=== PATIENT | male | born 1950 | race Two or more races ===

== ENCOUNTER → 2020-02-16 10:51 | Outpatient (BNVA) | payer MEDICARE, SELFPAY | PROVIDERS: PCP Family Medicine; Visit Provider Internal Medicine | DX: J44.9 Chronic obstructive pulmonary disease, unspecified (principal); J45.909 Unspecified asthma, uncomplicated; J68.3 Other acute and subacute respiratory conditions due to chemicals, gases, fumes and vapors; I10 Essential (primary) hypertension | CPT/HCPCS: 99212 ==

== ENCOUNTER 2020-05-07 10:25 | Outpatient (REF) | payer MEDICARE, SELFPAY ==
[2020-05-07 12:27] LABS: Estimated Average Glucose 117 mg/dL; Hemoglobin A1C 163.2587 umol/L; Hemoglobin A1c % 5.7 %
[2020-05-07 12:35] LABS: Anion Gap 17 (12-20); Blood Urea Nitrogen 14 mg/dL (9-16); Carbon Dioxide 27 mmol/L (22-29); Chloride 105 mmol/L (96-108); Cholesterol 166 mg/dL; Estimated Glomerular Filt Rate > 60; Glucose Fasting 106 mg/dL (60-99); HDL Cholesterol 35 mg/dL; LDL Cholesterol Calculated 100 mg/dl; Potassium 3.8 mmol/l (3.3-5.1); Sodium 145 mmol/L (135-145); Triglycerides 159 mg/dL
== END 2020-05-07 10:26 | disposition home or self-care (01) ==
LOC: HO.10HDL 10:25
PROVIDERS: Visit Provider Family Medicine
DX: I10 Essential (primary) hypertension (principal); E78.00 Pure hypercholesterolemia, unspecified; R73.9 Hyperglycemia, unspecified
CPT/HCPCS: 36415; 80051; 80061; 82565; 82947; 83036; 84520

== ENCOUNTER → 2020-06-14 13:07 | Outpatient (BNVA) | payer MEDICARE, SELFPAY | PROVIDERS: PCP Family Medicine; Visit Provider Internal Medicine | DX: J44.9 Chronic obstructive pulmonary disease, unspecified (principal); J30.9 Allergic rhinitis, unspecified; J68.3 Other acute and subacute respiratory conditions due to chemicals, gases, fumes and vapors; Z79.51 Long term (current) use of inhaled steroids | CPT/HCPCS: 99212 ==

== ENCOUNTER 2020-06-19 08:23 | Outpatient (REF) | payer MEDICARE, SELFPAY ==
[2020-06-19 10:13] LABS: MANUAL DIFF FLAG NO
[2020-06-19 10:17] LABS: Basophils Percent Auto 0.4 % (0-2); Eosinophils Absolute Auto 0.1 X10*3/uL (0.0-0.4); Eosinophils Percent Auto 2.6 % (0-4); Hematocrit 47.8 % (42-52); Hemoglobin 15.5 g/dl (14.0-18.0); Imm Gran Abs Auto 0.02 X10*3/uL (0.00-0.03); Imm Gran Pct Auto 0.4 % (0.0-0.4); Lymphocytes Absolute Auto 1.4 X10*3/uL (1.2-4.9); Lymphocytes Percent Auto 27.9 % (20-40); Mean Corpuscular HGB Conc 32.4 g/dl (31.0-36.0); Mean Corpuscular Hemoglobin 29.2 pg (27.0-33.0); Mean Platelet Volume 9.7 fL (9.4-12.4); Monocytes Absolute Auto 0.4 X10*3/uL (0.1-1.2); Monocytes Percent Auto 7.5 % (2-11); Neutrophils Absolute Auto 3.1 X10*3/uL (2.0-8.3); Neutrophils Percent Auto 61.2 % (45-73); Platelet Count 197 X10*3/uL (160-400); Red Blood Count 5.31 X10*6/uL (4.60-5.80); Red Cell Distribution Width 12.5 % (11.0-16.0); White Blood Count 5.1 X10*3/uL (4.8-10.8)
[2020-06-19 10:39] LABS: Glucose Urine UA NEG (NEG); Leukocyte Esterase Urine NEG (NEG); Nitrite Urine NEG (NEG); Urine Blood TRACE (NEG); Urine Ketones NEG (NEG); Urine Protein NEG (NEG-TRACE)
[2020-06-19 10:44] LABS: Alanine Aminotransferase 20 U/L (0-40); Albumin Level 4.4 g/dL (3.5-5.0); Alkaline Phosphatase 45 U/L (39-117); Appearance Urine CLEAR; Aspartate Amino Transferase 16 U/L (5-37); Bilirubin Direct 0.3 mg/dL (0.0-0.5); Bilirubin Total 0.8 mg/dL (0.0-1.0); Color Urine YELLOW; Magnesium 2.4 mg/dL (1.6-2.6); Total Protein 6.7 g/dL (6.5-8.0)
[2020-06-19 11:05] LABS: Erythrocyte Sedimentation Rate 2 MM/HR (0-15); Free T4 (Free Thyroxine) 0.87 ng/dL (0.71-1.85); Thyroid Stimulating Hormone 1.47 uIU/mL (0.32-4.0)
[2020-06-19 11:40] LABS: RBC Urine 0-2 /HPF (0); WBC Urine 0 /HPF (0-4)
[2020-06-19 11:41] LABS: Amorphous Sediment Urine 1+ /LPF; Mucus Urine 1+ /LPF
== END 2020-06-19 08:24 | disposition home or self-care (01) ==
LOC: HO.10HDL 08:23
PROVIDERS: Visit Provider Family Medicine
DX: R63.4 Abnormal weight loss (principal); R00.0 Tachycardia, unspecified; R53.1 Weakness
CPT/HCPCS: 36415; 80076; 81001; 83735; 84439; 84443; 85025; 85652

== ENCOUNTER → 2020-09-24 13:01 | Outpatient (BNVA) | payer MEDICARE, SELFPAY | PROVIDERS: PCP Family Medicine; Visit Provider Internal Medicine | DX: J44.9 Chronic obstructive pulmonary disease, unspecified (principal); J68.3 Other acute and subacute respiratory conditions due to chemicals, gases, fumes and vapors; J30.9 Allergic rhinitis, unspecified; Z79.899 Other long term (current) drug therapy | CPT/HCPCS: 99212 ==

== ENCOUNTER 2020-10-03 09:25 | Outpatient (REF) | payer MEDICARE, SELFPAY ==
[2020-10-03 10:12] LABS: MANUAL DIFF FLAG NO
[2020-10-03 10:23] LABS: Basophils Percent Auto 0.8 % (0-2); Eosinophils Absolute Auto 0.2 X10*3/uL (0.0-0.4); Eosinophils Percent Auto 3.8 % (0-4); Hemoglobin 15.6 g/dl (14.0-18.0); Imm Gran Abs Auto 0.03 X10*3/uL (0.00-0.03); Imm Gran Pct Auto 0.6 % (0.0-0.4); Lymphocytes Absolute Auto 1.1 X10*3/uL (1.2-4.9); Lymphocytes Percent Auto 20.6 % (20-40); Mean Corpuscular HGB Conc 33.2 g/dl (31.0-36.0); Mean Corpuscular Hemoglobin 29.6 pg (27.0-33.0); Mean Corpuscular Volume 89.2 fL (80-98); Mean Platelet Volume 9.2 fL (9.4-12.4); Monocytes Absolute Auto 0.4 X10*3/uL (0.1-1.2); Monocytes Percent Auto 7.9 % (2-11); Neutrophils Absolute Auto 3.5 X10*3/uL (2.0-8.3); Neutrophils Percent Auto 66.3 % (45-73); Platelet Count 238 X10*3/uL (160-400); Red Blood Count 5.27 X10*6/uL (4.60-5.80); Red Cell Distribution Width 12.5 % (11.0-16.0); White Blood Count 5.2 X10*3/uL (4.8-10.8)
[2020-10-03 10:51] LABS: Anion Gap 15 (12-20); Aspartate Amino Transferase 16 U/L (5-37); Blood Urea Nitrogen 10 mg/dL (9-16); Carbon Dioxide 25 mmol/L (22-29); Chloride 102 mmol/L (96-108); Estimated Glomerular Filt Rate > 60; Potassium 4.2 mmol/L (3.3-5.1); Sodium 138 mmol/L (135-145)
== END 2020-10-03 09:26 | disposition home or self-care (01) ==
LOC: HO.10HDL 09:25
PROVIDERS: Visit Provider Family Medicine
DX: R19.7 Diarrhea, unspecified (principal); R63.4 Abnormal weight loss
CPT/HCPCS: 36415; 80051; 82565; 84450; 84520; 85025

== ENCOUNTER → 2020-12-26 13:04 | Outpatient (BNVA) | payer MEDICARE, SELFPAY | PROVIDERS: PCP Family Medicine; Visit Provider Internal Medicine | DX: J68.3 Other acute and subacute respiratory conditions due to chemicals, gases, fumes and vapors (principal); J30.9 Allergic rhinitis, unspecified; J44.9 Chronic obstructive pulmonary disease, unspecified; F43.23 Adjustment disorder with mixed anxiety and depressed mood | CPT/HCPCS: 99212 ==

== ENCOUNTER 2021-01-18 10:31 | Outpatient (REF) | payer MEDICARE, SELFPAY ==
[2021-01-18 14:02] LABS: Anion Gap 14 (12-20); Blood Urea Nitrogen 16 mg/dL (9-16); Carbon Dioxide 30 mmol/L (22-29); Chloride 100 mmol/L (96-108); Estimated Glomerular Filt Rate > 60; Potassium 3.9 mmol/L (3.3-5.1); Sodium 140 mmol/L (135-145)
== END 2021-01-18 10:32 | disposition home or self-care (01) ==
LOC: HO.10HDL 10:31
PROVIDERS: Visit Provider Family Medicine
DX: I10 Essential (primary) hypertension (principal)
CPT/HCPCS: 36415; 80051; 82565; 84520

== ENCOUNTER 2021-01-30 14:11 | Outpatient (REF) | payer MEDICARE, SELFPAY ==
--- NOTE | ~2021-01-30 | MM_ITS ---
EXAMINATION: MM DIAGNOSTIC DIGITAL BREAST TOMOSYNTHESIS, BILATERAL US DIAGNOSTIC ULTRASOUND BREAST, LEFT CLINICAL INFORMATION: 70-year-old male with palpable masslike fullness left breast. Prior history asymmetric contralateral right gynecomastia. COMPARISON: Mammography: 07/18/2010 TECHNIQUE: Digital breast tomosynthesis is performed in both the craniocaudal and mediolateral oblique views along with computer-aided detection (CAD). Synthesized 2D images are generated from the tomosynthesis. Additional views are obtained: Right CC, spot exaggerated left CC. Ultrasound left breast is targeted to the 12:00 through 8:00 position using grayscale imaging and color Doppler without and with harmonics. FINDINGS: The breasts are heterogeneously dense, which may obscure small masses (ACR BI-RADS breast composition Category c). There is asymmetric gynecomastia, mild on right and moderate to prominent on left. There is no underlying mass or architectural abnormality. No abnormal calcifications. Axillary nodes are unremarkable. No skin thickening. Comparison with prior mammography 07/18/2010 shows reversed distribution of the asymmetric gynecomastia, at that time greater on right central and outer breast and lesser on left. Ultrasound left breast demonstrates gynecomastia type parenchymal pattern. No focal cystic or solid mass or focal duct ectasia. No edema tracking in soft tissue planes or skin thickening. Results are discussed with the patient at time of visit, using an gis application developer. MM/MM tomosynthesis diagnostic BI IMPRESSION: Asymmetric gynecomastia, moderate to prominent on left. This represents reversed distribution to that seen on prior remote mammography 2010. ASSESSMENT: BI-RADS 2: Benign RECOMMENDATION: Patient may be managed based on the clinical impression as needed. If there is still clinical concern, then further evaluation with surgical consult may be considered.
== END 2021-01-30 14:12 | disposition home or self-care (01) ==
LOC: HO.MAMMO 14:11
PROVIDERS: Visit Provider Family Medicine
DX: C50.322 Malignant neoplasm of lower-inner quadrant of left male breast (principal)
CPT/HCPCS: 76642; 77062; 77066

== ENCOUNTER 2021-03-11 11:04 | Outpatient (REF) | payer MEDICARE, SELFPAY ==
[2021-03-11 11:18] LABS: MANUAL DIFF FLAG NO
[2021-03-11 11:59] LABS: Basophils Percent Auto 0.3 % (0-2); Eosinophils Absolute Auto 0.2 X10*3/uL (0.0-0.4); Eosinophils Percent Auto 2.4 % (0-4); Imm Gran Abs Auto 0.03 X10*3/uL (0.00-0.03); Imm Gran Pct Auto 0.5 % (0.0-0.4); Lymphocytes Absolute Auto 0.6 X10*3/uL (1.2-4.9); Lymphocytes Percent Auto 10.3 % (20-40); Mean Corpuscular HGB Conc 32.6 g/dl (31.0-36.0); Mean Corpuscular Hemoglobin 29.4 pg (27.0-33.0); Mean Corpuscular Volume 90.2 fL (80.0-98.0); Mean Platelet Volume 9.8 fL (9.4-12.4); Monocytes Absolute Auto 0.4 X10*3/uL (0.1-1.2); Monocytes Percent Auto 6.9 % (2-11); Neutrophils Absolute Auto 4.9 x10*3/uL (2.0-8.3); Neutrophils Percent Auto 79.6 % (45-73); Platelet Count 199 X10*3/uL (160-400); Red Cell Distribution Width 12.9 % (11.0-16.0); White Blood Count 6.1 X10*3/uL (4.8-10.8)
[2021-03-11 12:29] LABS: Prostate Specific Antigen Scr 0.99 ng/mL (<0.05-4.0)
[2021-03-11 12:37] LABS: Alanine Aminotransferase 26 U/L (0-40); Albumin Level 4.4 g/dL (3.5-5.0); Alkaline Phosphatase 54 U/L (39-117); Anion Gap 14 (12-20); Aspartate Amino Transferase 21 U/L (5-37); Bilirubin Total 0.6 mg/dL (0.0-1.0); Blood Urea Nitrogen 14 mg/dL (9-16); Calcium 9.4 mg/dL (8.4-10.2); Carbon Dioxide 26 mmol/L (22-29); Chloride 105 mmol/L (96-108); Cholesterol 178 mg/dL; Estimated Glomerular Filt Rate > 60; Glucose Fasting 112 mg/dL (60-99); HDL Cholesterol 40 mg/dL; LDL Cholesterol Calculated 109 mg/dl; Potassium 4.3 mmol/L (3.3-5.1); Sodium 141 mmol/L (135-145); Total Protein 6.9 g/dL (6.5-8.0); Triglycerides 148 mg/dL
[2021-03-11 12:56] LABS: Estimated Average Glucose 117 mg/dL; Hemoglobin A1c % 5.7 %
[2021-03-11 13:39] LABS: Folate 19.5 ng/mL (> or = 4.0); Vitamin B12 1373 pg/mL (200-900)
[2021-03-15 13:31] LABS: Vitamin D 25-OH, D2 <4 ng/mL; Vitamin D 25-OH, D3 29 ng/mL; Vitamin D 25-OH, Total 29 ng/mL (30-100)
== END 2021-03-11 11:05 | disposition home or self-care (01) ==
LOC: HO.LAB 11:04
PROVIDERS: Visit Provider Nurse Practitioner Acute Care
DX: Z13.220 Encounter for screening for lipoid disorders (principal); Z13.21 Encounter for screening for nutritional disorder; Z12.5 Encounter for screening for malignant neoplasm of prostate; E56.9 Vitamin deficiency, unspecified; R52 Pain, unspecified
CPT/HCPCS: 36415; 80053; 80061; 82306; 82607; 82746; 83036; 84153; 85025

== ENCOUNTER 2021-04-16 12:37 | Outpatient (REF) | payer MEDICARE, SELFPAY ==
--- NOTE | ~2021-04-16 | MM_ITS ---
EXAMINATION: BONE DENSITOMETRY CLINICAL INDICATION: Encounter for screening for osteoporosis. COMPARISON: This is the patient's baseline examination. TECHNIQUE: Using a [employer] DXA System (software version: 13.1) manufactured by [employer], dual-energy x-ray absorptiometry was performed of the lumbar spine and left hip. The images are of good technical quality. Summary results are attached. FINDINGS: AP SPINE L1-L4: BMD 0.993 g/cm2, Z-score -1.2, T-score -1.9, osteopenia. LEFT FEMUR, NECK: BMD 0.849 g/cm2, Z-score -0.3, T-score -1.7, osteopenia. LEFT FEMUR, TOTAL: BMD 0.899 g/cm2, Z-score -0.5, T-score -1.4, osteopenia. IDENTIFIED RISK FACTORS: History of fracture (adult). HISTORY OF FRACTURE: Forearm. MEDICATIONS: Calcium supplements or multivitamin, vitamin D. MM/XR DEXA axial skeleton IMPRESSION: 1. DIAGNOSIS: Osteopenia based on the lowest T-score value of -1.9 in the lumbar spine applying World Health Organization criteria. 2. 10-YEAR FRACTURE RISK PREDICTION, FRAX: Major osteoporotic fracture (clinical spine, forearm, hip or shoulder) 6.6%. Hip fracture 1.6%. 3. Treatment Recommendations: NOF guidelines recommend consideration for treatment in postmenopausal women and men age 50 and older presenting with the following: -A hip or vertebral (clinical or morphometric) fracture. -T-score less than or equal to -2.5 at the femoral neck or spine after appropriate evaluation to exclude secondary causes. -Low bone mass at the hip or spine and a 10-year fracture probability by FRAX of greater than or equal to 3% for hip fracture or greater than or equal to 20% for major osteoporotic fracture based on the [place] adapted WHO algorithm. 4. Other Recommendations: All treatment decisions require clinical judgment and consideration of individual patient factors, including patient preferences, comorbidities, previous drug use, risk factors not captured in the FRAX model (e.g. frailty, falls, vitamin D deficiency, increased bone turnover, interval significant decline in bone density) and possible under or overestimation of fracture risk by FRAX. Additional medical evaluation for secondary cause of low bone mineral density may be appropriate. FUTURE SCAN RECOMMENDATION: People with diagnosed cases of osteoporosis or at high risk for fracture should have regular bone mineral density tests. For patients eligible for Medicare, routine testing is allowed once every 2 years. The testing frequency can be increased to one year for patients who have rapidly progressing disease, those who are receiving or discontinuing medical therapy to restore bone mass, or have additional risk factors.
== END 2021-04-16 12:38 | disposition home or self-care (01) ==
LOC: HO.MAMMO 12:37
PROVIDERS: Visit Provider Nurse Practitioner Acute Care
DX: Z13.820 Encounter for screening for osteoporosis (principal); M85.80 Other specified disorders of bone density and structure, unspecified site; Z79.899 Other long term (current) drug therapy
CPT/HCPCS: 77080

== ENCOUNTER → 2021-04-17 12:59 | Outpatient (BNVA) | payer MEDICARE, SELFPAY | PROVIDERS: PCP Nurse Practitioner Acute Care; Visit Provider Internal Medicine | DX: J43.2 Centrilobular emphysema (principal); J30.9 Allergic rhinitis, unspecified; J68.3 Other acute and subacute respiratory conditions due to chemicals, gases, fumes and vapors | CPT/HCPCS: 99212 ==

== ENCOUNTER 2021-07-17 09:18 | Outpatient (REF) | payer OTHER, SELFPAY ==
[2021-07-17 09:51] LABS: MANUAL DIFF FLAG NO
[2021-07-17 10:19] LABS: Basophils Absolute Auto 0.1 X10*3/uL (0.0-0.2); Basophils Percent Auto 0.9 % (0-2); Eosinophils Absolute Auto 0.2 X10*3/uL (0.0-0.4); Eosinophils Percent Auto 4.2 % (0-4); Hematocrit 49.2 % (42.0-52.0); Hemoglobin 16.2 g/dl (14.0-18.0); Imm Gran Abs Auto 0.03 X10*3/uL (0.00-0.03); Imm Gran Pct Auto 0.5 % (0.0-0.4); Lymphocytes Absolute Auto 1.2 X10*3/uL (1.2-4.9); Lymphocytes Percent Auto 20.8 % (20-40); Mean Corpuscular HGB Conc 32.9 g/dl (31.0-36.0); Mean Corpuscular Hemoglobin 29.2 pg (27.0-33.0); Mean Corpuscular Volume 88.8 fL (80.0-98.0); Mean Platelet Volume 9.4 fL (9.4-12.4); Monocytes Absolute Auto 0.5 X10*3/uL (0.1-1.2); Monocytes Percent Auto 8.9 % (2-11); Neutrophils Absolute Auto 3.7 x10*3/uL (2.0-8.3); Neutrophils Percent Auto 64.7 % (45-73); Platelet Count 232 X10*3/uL (160-400); Red Blood Count 5.54 X10*6/uL (4.60-5.80); Red Cell Distribution Width 12.3 % (11.0-16.0); White Blood Count 5.7 X10*3/uL (4.8-10.8)
[2021-07-17 11:07] LABS: Anion Gap 12 (12-20); Blood Urea Nitrogen 12 mg/dL (9-16); Calcium 9.7 mg/dL (8.4-10.2); Carbon Dioxide 30 mmol/L (22-29); Chloride 103 mmol/L (96-108); Cholesterol 186 mg/dL; Estimated Glomerular Filt Rate > 60; Glucose Fasting 116 mg/dL (60-99); HDL Cholesterol 38 mg/dL; LDL Cholesterol Calculated 122 mg/dl; Potassium 4.4 mmol/L (3.3-5.1); Sodium 141 mmol/L (135-145); Triglycerides 134 mg/dL
== END 2021-07-17 09:19 | disposition home or self-care (01) ==
LOC: HO.LAB 09:18
PROVIDERS: PCP Nurse Practitioner Acute Care; Visit Provider Nurse Practitioner Acute Care
DX: J44.9 Chronic obstructive pulmonary disease, unspecified (principal); E78.5 Hyperlipidemia, unspecified
CPT/HCPCS: 36415; 80048; 80061; 85025

== ENCOUNTER → 2021-08-21 13:36 | Outpatient (BNVA) | payer OTHER, SELFPAY | PROVIDERS: PCP Nurse Practitioner Acute Care; Visit Provider Internal Medicine | DX: J43.2 Centrilobular emphysema (principal); J68.3 Other acute and subacute respiratory conditions due to chemicals, gases, fumes and vapors; J30.9 Allergic rhinitis, unspecified; F43.23 Adjustment disorder with mixed anxiety and depressed mood | CPT/HCPCS: 94010; 99212 ==

== ENCOUNTER → 2021-10-16 12:53 | Outpatient (BNVA) | payer OTHER, SELFPAY | PROVIDERS: PCP Nurse Practitioner Family; Visit Provider Internal Medicine | DX: J43.2 Centrilobular emphysema (principal); J30.9 Allergic rhinitis, unspecified; J68.3 Other acute and subacute respiratory conditions due to chemicals, gases, fumes and vapors; F43.23 Adjustment disorder with mixed anxiety and depressed mood; Z79.52 Long term (current) use of systemic steroids; Z79.899 Other long term (current) drug therapy | CPT/HCPCS: 99212 ==

== ENCOUNTER 2021-10-21 07:36 | Outpatient (REF) | payer OTHER, SELFPAY ==
[2021-10-21 08:55] LABS: Alanine Aminotransferase 19 U/L (0-40); Albumin Level 4.5 g/dL (3.5-5.0); Alkaline Phosphatase 56 U/L (39-117); Anion Gap 12 (12-20); Aspartate Amino Transferase 17 U/L (5-37); Bilirubin Total 0.5 mg/dL (0.0-1.0); Blood Urea Nitrogen 13 mg/dL (9-16); Calcium 9.5 mg/dL (8.4-10.2); Carbon Dioxide 31 mmol/L (22-29); Chloride 101 mmol/L (96-108); Cholesterol 163 mg/dL; Estimated Glomerular Filt Rate > 60; Glucose Random 104 mg/dL (60-115); HDL Cholesterol 37 mg/dL; LDL Cholesterol Calculated 91 mg/dl; Potassium 4.2 mmol/L (3.3-5.1); Sodium 140 mmol/L (135-145); Total Protein 6.9 g/dL (6.5-8.0); Triglycerides 178 mg/dL
[2021-10-21 09:05] LABS: Estimated Average Glucose 117 mg/dL; Hemoglobin A1c % 5.7 %
[2021-10-21 09:15] LABS: TSH reflex Free T4 1.45 uIU/mL (0.32-4.0); Vitamin D 25-OH Total 24.5 ng/mL (>30)
== END 2021-10-21 07:37 | disposition home or self-care (01) ==
LOC: HO.LAB 07:36
PROVIDERS: PCP Nurse Practitioner Family; Visit Provider Nurse Practitioner Family
DX: Z13.29 Encounter for screening for other suspected endocrine disorder (principal); R73.01 Impaired fasting glucose; E78.5 Hyperlipidemia, unspecified; I10 Essential (primary) hypertension
CPT/HCPCS: 36415; 80053; 80061; 82306; 83036; 84443

== ENCOUNTER 2021-11-04 08:07 | Outpatient (REF) | payer OTHER, SELFPAY ==
[2021-11-04 08:21] LABS: MANUAL DIFF FLAG NO
[2021-11-04 08:28] LABS: Basophils Percent Auto 0.7 % (0-2); Eosinophils Absolute Auto 0.2 X10*3/uL (0.0-0.4); Eosinophils Percent Auto 2.5 % (0-4); Hematocrit 47.8 % (42.0-52.0); Hemoglobin 15.7 g/dl (14.0-18.0); Imm Gran Abs Auto 0.03 X10*3/uL (0.00-0.03); Imm Gran Pct Auto 0.5 % (0.0-0.4); Lymphocytes Absolute Auto 1.4 X10*3/uL (1.2-4.9); Lymphocytes Percent Auto 23.9 % (20-40); Mean Corpuscular HGB Conc 32.8 g/dl (31.0-36.0); Mean Corpuscular Hemoglobin 29.2 pg (27.0-33.0); Mean Corpuscular Volume 88.8 fL (80.0-98.0); Mean Platelet Volume 9.1 fL (9.4-12.4); Monocytes Absolute Auto 0.4 X10*3/uL (0.1-1.2); Neutrophils Percent Auto 65.4 % (45-73); Platelet Count 203 X10*3/uL (160-400); Red Blood Count 5.38 X10*6/uL (4.60-5.80)
[2021-11-04 08:48] LABS: Rheumatoid Factor < 15.0 IU/mL (<15.0)
[2021-11-05 12:32] LABS: Anti Nuclear Antibody Screen NEGATIVE (NEGATIVE)
== END 2021-11-04 08:08 | disposition home or self-care (01) ==
LOC: HO.LAB 08:07
PROVIDERS: PCP Nurse Practitioner Family; Visit Provider Nurse Practitioner Family
DX: M25.50 Pain in unspecified joint (principal); R63.0 Anorexia
CPT/HCPCS: 36415; 85025; 86038; 86039; 86431

== ENCOUNTER 2021-12-25 13:53 | Outpatient (REF) | payer OTHER, SELFPAY ==
[2021-12-25 14:40] LABS: Baso%MD 0.5 %; Eos%MD 2.4 %; Hematocrit 46.8 % (42.0-52.0); Hemoglobin 15.6 g/dl (14.0-18.0); IG%MD 0.3 %; Lymph%MD 14.8 %; Mean Corpuscular HGB Conc 33.3 g/dl (31.0-36.0); Mean Corpuscular Hemoglobin 29.5 pg (27.0-33.0); Mean Corpuscular Volume 88.5 fL (80.0-98.0); Mean Platelet Volume 9.7 fL (9.4-12.4); Mono%MD 7.5 %; Neut%MD 74.5 %; Platelet Count 270 X10*3/uL (160-400); Red Blood Count 5.29 X10*6/uL (4.60-5.80); Red Cell Distribution Width 12.6 % (11.0-16.0); White Blood Count 7.6 X10*3/uL (4.8-10.8)
[2021-12-25 15:14] LABS: Band Neutrophils Percent 0 % (3-5); Eosinophils Absolute Manual 0.2 X10*3/uL (0.0-0.4); Eosinophils Percent Manual 2 % (0-4); Lymphocytes Absolute Manual 1.1 X10*3/uL (1.2-4.9); Lymphocytes Percent Manual 14 % (20-40); Monocytes Absolute Manual 0.4 X10*3/uL (0.1-1.2); Monocytes Percent Manual 5 % (2-11); Neutrophils Percent Manual 79 % (45-73)
[2021-12-25 15:15] LABS: Large Platelet PRESENT; Platelet Estimate NORMAL (NORMAL); Platelet Morphology Comment NOTED; RBC Morphology NORMAL
[2021-12-27 18:32] LABS: Immunoglobulin E 5 kU/L (<OR=114)
== END 2021-12-25 13:54 | disposition home or self-care (01) ==
LOC: HO.LAB 13:53
PROVIDERS: PCP Nurse Practitioner Family; Visit Provider Internal Medicine
DX: J30.9 Allergic rhinitis, unspecified (principal); J43.2 Centrilobular emphysema; J68.3 Other acute and subacute respiratory conditions due to chemicals, gases, fumes and vapors; F41.9 Anxiety disorder, unspecified; F32.A Depression, unspecified; Z79.899 Other long term (current) drug therapy
CPT/HCPCS: 36415; 82785; 85007; 85027; 99212

== ENCOUNTER 2022-01-20 08:21 | Outpatient (REF) | payer OTHER, SELFPAY ==
[2022-01-20 09:11] LABS: Estimated Average Glucose 123 mg/dL; Hemoglobin A1c % 5.9 %
[2022-01-20 09:31] LABS: Alanine Aminotransferase 35 U/L (0-40); Albumin Level 4.5 g/dL (3.5-5.0); Alkaline Phosphatase 63 U/L (39-117); Anion Gap 14 (12-20); Aspartate Amino Transferase 30 U/L (5-37); Bilirubin Total 1.1 mg/dL (0.0-1.0); Blood Urea Nitrogen 13 mg/dL (9-16); Calcium 8.9 mg/dL (8.4-10.2); Carbon Dioxide 27 mmol/L (22-29); Chloride 102 mmol/L (96-108); Cholesterol 155 mg/dL; Estimated Glomerular Filt Rate > 60; Glucose Fasting 155 mg/dL (60-99); HDL Cholesterol 38 mg/dL; LDL Cholesterol Calculated 100 mg/dl; Potassium 4.3 mmol/L (3.3-5.1); Sodium 139 mmol/L (135-145); Triglycerides 89 mg/dL
[2022-01-20 09:53] LABS: Vitamin D 25-OH Total 29.8 ng/mL (>30)
== END 2022-01-20 08:22 | disposition home or self-care (01) ==
LOC: HO.LAB 08:21
PROVIDERS: PCP Nurse Practitioner Family; Visit Provider Nurse Practitioner Family
DX: E78.5 Hyperlipidemia, unspecified (principal); R73.01 Impaired fasting glucose; I10 Essential (primary) hypertension; R79.89 Other specified abnormal findings of blood chemistry
CPT/HCPCS: 36415; 80053; 80061; 82306; 83036

== ENCOUNTER → 2022-01-29 13:39 | Outpatient (BNVA) | payer OTHER, SELFPAY | PROVIDERS: PCP Nurse Practitioner Family; Visit Provider Internal Medicine | DX: J43.2 Centrilobular emphysema (principal); J68.3 Other acute and subacute respiratory conditions due to chemicals, gases, fumes and vapors; J30.9 Allergic rhinitis, unspecified; F43.23 Adjustment disorder with mixed anxiety and depressed mood; F41.9 Anxiety disorder, unspecified; F32.A Depression, unspecified | CPT/HCPCS: 99212 ==

== ENCOUNTER → 2022-04-10 13:27 | Outpatient (BNVA) | payer OTHER, SELFPAY | PROVIDERS: PCP Nurse Practitioner Family; Visit Provider Internal Medicine | DX: J43.2 Centrilobular emphysema (principal); J30.9 Allergic rhinitis, unspecified; J68.3 Other acute and subacute respiratory conditions due to chemicals, gases, fumes and vapors; F43.23 Adjustment disorder with mixed anxiety and depressed mood | CPT/HCPCS: 99212 ==

== ENCOUNTER 2022-04-22 09:11 | Outpatient (REF) | payer OTHER, SELFPAY ==
[2022-04-22 09:29] LABS: MANUAL DIFF FLAG NO
[2022-04-22 09:53] LABS: Basophils Percent Auto 0.5 % (0-2); Eosinophils Absolute Auto 0.3 X10*3/uL (0.0-0.4); Hematocrit 48.2 % (42.0-52.0); Hemoglobin 15.7 g/dl (14.0-18.0); Imm Gran Abs Auto 0.03 X10*3/uL (0.00-0.03); Imm Gran Pct Auto 0.5 % (0.0-0.4); Lymphocytes Absolute Auto 1.2 X10*3/uL (1.2-4.9); Mean Corpuscular HGB Conc 32.6 g/dl (31.0-36.0); Mean Corpuscular Hemoglobin 28.4 pg (27.0-33.0); Mean Corpuscular Volume 87.3 fL (80.0-98.0); Mean Platelet Volume 9.3 fL (9.4-12.4); Monocytes Absolute Auto 0.6 X10*3/uL (0.1-1.2); Monocytes Percent Auto 8.7 % (2-11); Neutrophils Absolute Auto 4.4 x10*3/uL (2.0-8.3); Neutrophils Percent Auto 67.3 % (45-73); Platelet Count 247 X10*3/uL (160-400); Red Blood Count 5.52 X10*6/uL (4.60-5.80); Red Cell Distribution Width 13.1 % (11.0-16.0); White Blood Count 6.5 X10*3/uL (4.8-10.8)
[2022-04-22 10:24] LABS: Estimated Average Glucose 134 mg/dL; Hemoglobin A1c % 6.3 %
[2022-04-22 11:22] LABS: Alanine Aminotransferase 23 U/L (0-40); Albumin Level 4.5 g/dL (3.5-5.0); Alkaline Phosphatase 59 U/L (39-117); Anion Gap 11 (12-20); Aspartate Amino Transferase 20 U/L (5-37); Bilirubin Total 0.8 mg/dL (0.0-1.0); Blood Urea Nitrogen 16 mg/dL (9-16); Calcium 9.5 mg/dL (8.4-10.2); Carbon Dioxide 31 mmol/L (22-29); Chloride 103 mmol/L (96-108); Cholesterol 180 mg/dL; Estimated Glomerular Filt Rate > 60; Glucose Fasting 110 mg/dL (60-99); HDL Cholesterol 40 mg/dL; LDL Cholesterol Calculated 120 mg/dl; Sodium 141 mmol/L (135-145); Total Protein 7.1 g/dL (6.5-8.0); Triglycerides 104 mg/dL
[2022-04-22 11:44] LABS: Vitamin D 25-OH Total 30.8 ng/mL (>30)
== END 2022-04-22 09:12 | disposition home or self-care (01) ==
LOC: HO.LAB 09:11
PROVIDERS: PCP Nurse Practitioner Family; Visit Provider Nurse Practitioner Family
DX: E78.5 Hyperlipidemia, unspecified (principal); R73.01 Impaired fasting glucose; R79.89 Other specified abnormal findings of blood chemistry; I10 Essential (primary) hypertension
CPT/HCPCS: 36415; 80053; 80061; 82306; 83036; 85025

== ENCOUNTER 2022-07-16 13:28 | Outpatient (REF) | payer OTHER, SELFPAY ==
--- NOTE | ~2022-07-16 | XR_ITS ---
EXAMINATION: XR CHEST CLINICAL INFORMATION: COPD with acute exacerbation. COMPARISON: Chest x-ray 11/10/2018. TECHNIQUE: 2 views of the chest were obtained. FINDINGS: The lungs are hyperinflated without acute pneumonic consolidation. There is linear atelectasis or scarring seen in both lung bases. Mild thickening of right minor fissure is noted. The heart size and pulmonary vascularity is normal. No gross bony abnormality seen. XR/XR chest 2V IMPRESSION: Hyperinflated lungs with bibasilar linear atelectasis or scarring. No acute pneumonic consolidation seen.
== END 2022-07-16 13:29 | disposition home or self-care (01) ==
LOC: HO.XRAY 13:28
PROVIDERS: PCP Nurse Practitioner Family; Visit Provider Internal Medicine
DX: J44.1 Chronic obstructive pulmonary disease with (acute) exacerbation (principal); J30.9 Allergic rhinitis, unspecified
CPT/HCPCS: 71046; 99212

== ENCOUNTER 2022-07-21 08:31 | Outpatient (REF) | payer OTHER, SELFPAY ==
[2022-07-21 08:45] LABS: MANUAL DIFF FLAG NO
[2022-07-21 09:01] LABS: Basophils Percent Auto 0.2 % (0-2); Eosinophils Percent Auto 0.2 % (0-4); Hematocrit 48.5 % (42.0-52.0); Hemoglobin 15.9 g/dl (14.0-18.0); Imm Gran Abs Auto 0.07 X10*3/uL (0.00-0.03); Imm Gran Pct Auto 0.7 % (0.0-0.4); Lymphocytes Absolute Auto 1.6 X10*3/uL (1.2-4.9); Lymphocytes Percent Auto 16.6 % (20-40); Mean Corpuscular HGB Conc 32.8 g/dl (31.0-36.0); Mean Corpuscular Hemoglobin 28.8 pg (27.0-33.0); Mean Corpuscular Volume 87.7 fL (80.0-98.0); Mean Platelet Volume 9.1 fL (9.4-12.4); Monocytes Absolute Auto 0.7 X10*3/uL (0.1-1.2); Monocytes Percent Auto 7.1 % (2-11); Neutrophils Absolute Auto 7.1 x10*3/uL (2.0-8.3); Neutrophils Percent Auto 75.2 % (45-73); Platelet Count 303 X10*3/uL (160-400); Red Blood Count 5.53 X10*6/uL (4.60-5.80); Red Cell Distribution Width 12.3 % (11.0-16.0); White Blood Count 9.5 X10*3/uL (4.8-10.8)
[2022-07-21 09:06] LABS: Estimated Average Glucose 131 mg/dL; Hemoglobin A1c % 6.2 %
[2022-07-21 09:43] LABS: Alanine Aminotransferase 28 U/L (0-40); Albumin Level 4.2 g/dL (3.5-5.0); Alkaline Phosphatase 60 U/L (39-117); Anion Gap 11 (12-20); Aspartate Amino Transferase 16 U/L (5-37); Bilirubin Total 0.6 mg/dL (0.0-1.0); Blood Urea Nitrogen 14 mg/dL (9-16); Calcium 9.2 mg/dL (8.4-10.2); Carbon Dioxide 33 mmol/L (22-29); Chloride 102 mmol/L (96-108); Cholesterol 165 mg/dL; Estimated Glomerular Filt Rate 58; Glucose Fasting 102 mg/dL (60-99); HDL Cholesterol 38 mg/dL; LDL Cholesterol Calculated 104 mg/dl; Potassium 4.1 mmol/L (3.3-5.1); Sodium 142 mmol/L (135-145); Total Protein 6.6 g/dL (6.5-8.0); Triglycerides 116 mg/dL
[2022-07-21 09:59] LABS: TSH reflex Free T4 0.46 uIU/mL (0.32-4.0); Vitamin D 25-OH Total 40.7 ng/mL (>30)
[2022-07-21 10:14] LABS: Creatinine Urine 103.22 mg/dL; Microalbumin Urine < 5.0 mg/L
== END 2022-07-21 08:32 | disposition home or self-care (01) ==
LOC: HO.LAB 08:31
PROVIDERS: PCP Nurse Practitioner Family; Visit Provider Nurse Practitioner Family
DX: K21.9 Gastro-esophageal reflux disease without esophagitis (principal); I10 Essential (primary) hypertension; R73.03 Prediabetes; E78.5 Hyperlipidemia, unspecified; E55.9 Vitamin D deficiency, unspecified
CPT/HCPCS: 36415; 80053; 80061; 82043; 82306; 83036; 84443; 85025

== ENCOUNTER 2022-07-30 13:20 | Outpatient (REF) | payer OTHER, SELFPAY ==
[2022-07-30 15:30] LABS: Prostate Specific Antigen 0.79 ng/mL (<0.05-4.0)
== END 2022-07-30 13:21 | disposition home or self-care (01) ==
LOC: HO.LAB 13:20
PROVIDERS: Absent Provider Nurse Practitioner Family; PCP Nurse Practitioner Family; Visit Provider Internal Medicine
DX: J43.2 Centrilobular emphysema (principal); J30.9 Allergic rhinitis, unspecified; J68.3 Other acute and subacute respiratory conditions due to chemicals, gases, fumes and vapors; Z12.5 Encounter for screening for malignant neoplasm of prostate
CPT/HCPCS: 36415; 84153; 99212

== ENCOUNTER → 2022-08-11 09:55 | Outpatient (BNVA) | payer OTHER, SELFPAY | PROVIDERS: PCP Nurse Practitioner Family; Visit Provider Internal Medicine | DX: Z71.89 Other specified counseling (principal); J45.50 Severe persistent asthma, uncomplicated; Z79.899 Other long term (current) drug therapy | CPT/HCPCS: 99211 ==

== ENCOUNTER → 2022-09-03 13:26 | Outpatient (BNVA) | payer OTHER, SELFPAY | PROVIDERS: PCP Nurse Practitioner Family; Visit Provider Internal Medicine | DX: J44.9 Chronic obstructive pulmonary disease, unspecified (principal); J30.9 Allergic rhinitis, unspecified; J68.3 Other acute and subacute respiratory conditions due to chemicals, gases, fumes and vapors; Z79.52 Long term (current) use of systemic steroids; Z79.899 Other long term (current) drug therapy | CPT/HCPCS: 99212 ==

== ENCOUNTER → 2022-10-02 13:03 | Outpatient (BNVA) | payer OTHER, SELFPAY | PROVIDERS: PCP Nurse Practitioner Family; Visit Provider Internal Medicine | DX: J44.9 Chronic obstructive pulmonary disease, unspecified (principal); J30.9 Allergic rhinitis, unspecified; J68.3 Other acute and subacute respiratory conditions due to chemicals, gases, fumes and vapors; F41.9 Anxiety disorder, unspecified; F32.A Depression, unspecified | CPT/HCPCS: 99212 ==

== ENCOUNTER 2022-10-24 08:51 | Outpatient (REF) | payer OTHER, SELFPAY ==
[2022-10-24 10:02] LABS: Estimated Average Glucose 117 mg/dL; Hemoglobin A1C 150.6894 umol/L; Hemoglobin A1c % 5.7 %
[2022-10-24 11:12] LABS: Alanine Aminotransferase 23 U/L (0-40); Alkaline Phosphatase 56 U/L (39-117); Anion Gap 12 (12-20); Aspartate Amino Transferase 16 U/L (5-37); Bilirubin Total 0.5 mg/dL (0.0-1.0); Blood Urea Nitrogen 14 mg/dL (9-16); Calcium 9.1 mg/dL (8.4-10.2); Carbon Dioxide 31 mmol/L (22-29); Chloride 103 mmol/L (96-108); Cholesterol 166 mg/dL; Estimated Glomerular Filt Rate > 60; Glucose Fasting 99 mg/dL (60-99); HDL Cholesterol 38 mg/dL; LDL Cholesterol Calculated 96 mg/dl; Potassium 3.7 mmol/L (3.3-5.1); Sodium 142 mmol/L (135-145); Total Protein 6.6 g/dL (6.5-8.0); Triglycerides 162 mg/dL
[2022-10-24 11:26] LABS: Vitamin D 25-OH Total 35.8 ng/mL (>30)
== END 2022-10-24 08:52 | disposition home or self-care (01) ==
LOC: HO.LAB 08:51
PROVIDERS: PCP Nurse Practitioner Family; Visit Provider Nurse Practitioner Family
DX: R73.03 Prediabetes (principal); E78.5 Hyperlipidemia, unspecified; E55.9 Vitamin D deficiency, unspecified
CPT/HCPCS: 36415; 80053; 80061; 82306; 83036

== ENCOUNTER 2022-10-28 12:21 | Outpatient (AMB) | payer OTHER, SELFPAY ==
[2022-10-28 12:36] VITALS: BP 122/78; PULSE 71; O2SAT 96; BMI 27.3
--- NOTE | 2022-10-28 12:36 | A.OFFPC_ITS ---
Vital Signs 10/28/22 12:36 Height 5 ft 6 in Weight 169 lb BMI 27.3 BP 122/78 Blood Pressure Location Lt brachial Position Sitting Pulse 71 Pulse Source Pulse Oximeter Temp Source Skin Pulse Oximetry (%) 96 Oxygen Delivery Method Room Air Intake Visit Reasons: F/U Pre DM, HTN, HLD Pail Bailer Required: Yes Pail Bailer Language: [place] Allergies haloperidol [From HALDOL] Adverse Reaction (Severe, Verified 10/28/22 13:30) AKATHESIA cimetidine [From Tagamet] Adverse Reaction (Intermediate, Verified 10/28/22 13:30) GYNECOMASTIA bupropion [BUPROPION] Adverse Reaction (Unknown, Verified 10/28/22 13:30) UNKNOWN Medication List - Last Reconciled 10/28/22 by CHELO Bardales acetaminophen (Tylenol Extra Strength) 1,000 mg PO Q6H PRN albuterol sulfate 2.5 mg (3 mL) inhalation Q4-6H PRN albuterol sulfate 90 mcg/actuation (Ventolin HFA) 2 puffs inhalation Q4-6H PRN 30 days atorvastatin 10 mg PO BEDTIME benzonatate 100 mg PO BID PRN blood pressure monitor As directed cholecalciferol (vitamin D3) 25 mcg PO DAILY diclofenac sodium 1% (Voltaren Arthritis Pain) 2 grams topical QID dupilumab (Dupixent) 300 mg (2 mL) subcut Q2W dupilumab (Dupixent) 600 mg (4 mL) subcut ONCE famotidine 40 mg PO DAILY fluticasone propion-salmeterol 500-50 mcg/dose 1 inh inhalation DAILY food supplemt, lactose-reduced (Boost High Protein) 1 ea PO BID PRN Incruse Ellipta 62.5 mcg/actuation (umeclidinium) 1 inh PO DAILY NS lidocaine 4% 2 patches topical DAILY PRN losartan 25 mg PO QPM losartan 50 mg PO DAILY dipti extract 500 mg PO DAILY magnesium oxide 500 mg PO DAILY mecobalamin (vitamin B12) 1,000 mcg PO DAILY miscellaneous medical supply 1 ea miscellaneous DAILY miscellaneous medical supply 1 ea miscellaneous DAILY montelukast 10 mg PO BEDTIME prednisone 5 mg PO DAILY tamsulosin 0.4 mg PO BEDTIME Ventolin HFA 90 mcg/actuation (albuterol sulfate) 2 puffs PO Q4H PRN NS Tobacco use date assessed: 10/28/22 Fall risk assessment: No Falls in past year Last assessed Fall Risk: 10/28/22 Dental Screening Dental Screen Date: 10/28/22 HPI F/U Pre DM, HTN, HLD HPI Details Patient is a 72-year-old male who presents today for a routine follow- up. Medical history significant for GERD, prediabetes, vitamin-D deficiency, hyperlipidemia, insomnia, reactive airways dysfunction syndrome, COPD - followed by pulmonology Dr. Rey, asthma, and hypertension among others. Patient is compliant with medications and he is following low carbohydrate and low cholesterol diets.?Patient reports ongoing shortness of breath with activity and intermittent dry cough - currently on prednisone which is prescribed by pulmonology. Recent blood work results reviewed with the patient.? Patient is a [place]-speaking and online recreation director was incorporated into this visit [id number].? [facility] Medical History Acute adjustment disorder with mixed anxiety and depressed mood Acute costochondritis Allergic rhinitis Anxiety and depression Asthma-COPD overlap syndrome COPD (chronic obstructive pulmonary disease) COPD exacerbation Essential hypertension Reactive airways dysfunction syndrome Screening for hypercholesterolemia Screening for prostate cancer Unspecified asthma, uncomplicated Vitamin deficiency Vitamin deficiency Surgical History History of colonoscopy History of hernia surgery History of surgery on arm Social History Housing: Other Housing Other:: Trailer Home Alcohol intake: never Patient Tobacco Use Status: Never used Tobacco e-Cigarette/Vaping Use: Never Used Second Hand Smoke Exposure: No service: No Current occupational status: retired and disabled Cognitive needs: No Hearing needs: No Vision needs: Yes (Glasses) Questionnaire Thrive Questionnaire Date Thrive assessed: 04/29/22 AUDIT C Alcohol Use Questionnaire (AUDIT-C) 1. How often do you have a drink containing alcohol?: Never 2. How many drinks containing alcohol do you have on a typical day when you are drinking?: 1 or 2 (0) 3. How often do you have six or more drinks on one occasion?: Never Total Score: 0 Score Reviewed/Action Taken: No ANNABELLA-7 AMB Questionnaire ANNABELLA-7 Date ANNABELLA - 7 assessed: 04/29/22 Source: Developed by Drs. Raphael Basurto, Nereida Andrea, Shekhar Flowers and colleagues, with an educational jon from [employer]. Review of Systems Const Denies body aches, Denies chills, Denies fever(s) and Denies headache(s) Eyes Denies change in vision ENT Denies dizziness, Denies otalgia, Denies headache(s), Denies nasal discharge, Denies sinus pain and Denies sore throat Card Denies chest pain, Denies edema, Denies lightheadedness, Denies dyspnea and Reports dyspnea on exertion Resp Reports as per HPI, Denies chest congestion, Reports cough (Intermittent), Denies dyspnea and Reports dyspnea on exertion GI Denies abdominal pain, Denies constipation, Denies diarrhea, Denies nausea and Denies vomiting Denies difficulty urinating and Denies dysuria Musc Denies myalgias, Denies numbness and Denies tingling Skin/Breast Denies lesions and Denies rash Neuro Denies dizziness, Denies headache(s), Denies numbness and Denies tingling Physical exam (Primary Care) Vital Signs: Last Vital Signs Pulse 71 10/28/22 12:36 BP 122/78 10/28/22 12:36 Pulse Ox 96 10/28/22 12:36 Oxygen Delivery Method Room Air 10/28/22 12:36 BMI result Body Mass Index 27.3 Tobacco/Smoking Status: Tobacco use Status Tobacco use date assessed 10/28/22 10/28/22 12:37 Patient Tobacco Use Status Never used Tobacco 10/28/22 12:37 e-Cigarette/Vaping Use Never Used 10/28/22 12:37 Thrive Assessment: Date of Thrive Assessment Date Thrive assessed 04/29/22 10/28/22 12:37 Const General: cooperative and no acute distress Orientation/consciousness: patient oriented x3 HENMT Head: Yes normocephalic and Yes atraumatic Face and sinus: Yes sinuses nontender Mouth: oropharynx normal and moist mucous membranes Throat: Yes posterior oropharynx normal Eyes General: appearance normal, both eyes and all related structures Pupils: Equal, round and reactive pupils present EOM: EOMs intact bilaterally Neck Neck: Yes normal visual inspection, Yes full ROM and Yes no lymphadenopathy Thyroid: Thyroid normal Resp Effort & Inspection: normal respiratory effort Auscultation: clear to auscultation bilaterally, no crackles, no rales, no rhonchi and no wheezes Cardio Rate: regular rate Rhythm: regular rhythm Heart sounds: S1 normal heart sound present, S2 normal heart sound present and no murmurs GI Palpation (GI): Soft to palpation, not firm, nontender, no guarding, not rigid and no hepatosplenomegaly Auscultation: normal bowel sounds Skin General skin exam: no rashes or lesions noted Neuro General: patient oriented x3 Cranial nerves: Yes Equal, round and reactive pupils present Gait exam (Neuro): Normal gait present Extrem General: Yes full ROM and No edema Assessment and Plan Assessment & Plan (1) GERD (gastroesophageal reflux disease): Code(s): K21.9 - Gastro-esophageal reflux disease without esophagitis Plan: Famotidine 40 mg daily Encouraged to avoid GERD trigger foods Do not lay down 2-3 hours after evening meal (2) Hyperlipidemia: Code(s): E78.5 - Hyperlipidemia, unspecified Plan: LDL 96 10/2022 Atorvastatin 10 mg at bedtime Reinforced low-cholesterol diet (3) Essential hypertension: Code(s): I10 - Essential (primary) hypertension Plan: Continue losartan 50 mg in the morning and losartan 25 mg in the evening Low-salt diet Goal BP equal or less than 140/90 (4) Prediabetes: Code(s): R73.03 - Prediabetes Plan: A1c 5.7 10/2022 Reinforced low-carbohydrate diet Continue to monitor (5) Asthma-COPD overlap syndrome: Comment: PATIENT HAS HAD CHRONIC SEVERE PERSISTENT ASTHMA/COPD. WITH FREQUENT EXACERBATION, AND STEROID DEPENDENCE. NOW THAT HE IS STARTED ON DUPIXENT THERAPY, HE IS DOING MUCH BETTER . HE STILL NEEDS LOT OF SUPPORT, AND CONTINUED INTENSIVE TREATMENT. TX: WILL CONTINUE HIM ON PREDNISONE 5 MG A DAILY AT THIS TIME ADVAIR 500-51 INHALATION B.I.D. INCRUSE ELLIPTA 1 INHALATION DAILY. ALBUTEROL HFA 2 PUFFS Q 4-6 HOURS P.R.N.. DUPIXENT 300 MG SUBQ Q.2 WEEKS. PREDNISONE 5 MG DAILY FOR 4 MORE WEEKS THEN WILL START WEANING OFF. Code(s): J44.9 - Chronic obstructive pulmonary disease, unspecified Plan: Continue to follow-up with pulmonology Dr. Rey Continue current treatment as prescribed by pulmonology Plan Follow-up in 3 months or sooner as needed Orders: Orders Lipid Panel 3 Months E78.5 - Hyperlipidemia, unspecified Comprehensive [place]. Panel Fast 3 Months R73.03 - Prediabetes Vitamin B12 and Folate 3 Months R73.03 - Prediabetes Medications: Refilled losartan 25 mg PO QPM 90 tabs 1RF I10 - Essential (primary) hypertension losartan 50 mg PO DAILY 180 tabs 0RF I10 - Essential (primary) hypertension Coding Level of Care Code Est Pt Level 4 (36925) Diagnoses GERD (gastroesophageal reflux disease) K21.9 Hyperlipidemia E78.5 Essential hypertension I10 Prediabetes R73.03 Asthma-COPD overlap syndrome J44.9
== END 2022-10-28 13:45 | disposition home or self-care (01) ==
PROVIDERS: Visit Provider Nurse Practitioner Family
DX: K21.9 Gastro-esophageal reflux disease without esophagitis (principal); I10 Essential (primary) hypertension; J44.9 Chronic obstructive pulmonary disease, unspecified; E78.5 Hyperlipidemia, unspecified; R73.03 Prediabetes
CPT/HCPCS: 99214

== ENCOUNTER 2022-11-10 07:45 | Outpatient (REF) | payer OTHER, SELFPAY ==
[2022-11-10 08:45] LABS: Alanine Aminotransferase 30 U/L (0-40); Albumin Level 4.1 g/dL (3.5-5.0); Alkaline Phosphatase 56 U/L (39-117); Anion Gap 14 (12-20); Aspartate Amino Transferase 21 U/L (5-37); Bilirubin Total 0.6 mg/dL (0.0-1.0); Blood Urea Nitrogen 17 mg/dL (9-16); Carbon Dioxide 27 mmol/L (22-29); Chloride 105 mmol/L (96-108); Cholesterol 190 mg/dL; Estimated Glomerular Filt Rate > 60; Glucose Fasting 108 mg/dL (60-99); HDL Cholesterol 45 mg/dL; LDL Cholesterol Calculated 123 mg/dl; Sodium 142 mmol/L (135-145); Total Protein 6.9 g/dL (6.5-8.0); Triglycerides 113 mg/dL
[2022-11-10 09:11] LABS: Folate 15.4 ng/mL (> or = 4.0); Vitamin B12 707 pg/mL (200-900)
== END 2022-11-10 07:46 | disposition home or self-care (01) ==
LOC: HO.LAB 07:45
PROVIDERS: PCP Nurse Practitioner Family; Visit Provider Nurse Practitioner Family
DX: R73.03 Prediabetes (principal); E78.5 Hyperlipidemia, unspecified
CPT/HCPCS: 36415; 80053; 80061; 82607; 82746

== ENCOUNTER 2022-11-26 12:53 | Outpatient (AMB) | payer OTHER, SELFPAY ==
--- NOTE | 2022-11-26 13:09 | MHC.OFFVIS ---
Intake Vital Signs 11/26/22 13:10 Height 5 ft 6 in Weight 170 lb BMI 27.4 BP 130/70 Blood Pressure Location Lt brachial Position Sitting Pulse 93 Pulse Source Pulse Oximeter Pulse Oximetry (%) 94 Oxygen Delivery Method Room Air Intake Visit Reasons: COPD Intake Note: pt is here for follow up and states he is the same, still receiving injections PLEASE SEND IN REFILL FOR ALBUTEROL FOR NEBULIZER Director Of Corporate Responsibility Required: No Allergies haloperidol [From HALDOL] Adverse Reaction (Severe, Verified 11/26/22 13:27) AKATHESIA cimetidine [From Tagamet] Adverse Reaction (Intermediate, Verified 11/26/22 13:27) GYNECOMASTIA bupropion [BUPROPION] Adverse Reaction (Unknown, Verified 11/26/22 13:27) UNKNOWN Medication List - Last Reconciled 11/26/22 by Ivan Rey MD acetaminophen (Tylenol Extra Strength) 1,000 mg PO Q6H PRN albuterol sulfate 2.5 mg (3 mL) inhalation Q4-6H PRN albuterol sulfate 90 mcg/actuation (Ventolin HFA) 2 puffs inhalation Q4-6H PRN 30 days atorvastatin 10 mg PO BEDTIME benzonatate 100 mg PO BID PRN blood pressure monitor As directed cholecalciferol (vitamin D3) 25 mcg PO DAILY diclofenac sodium 1% (Voltaren Arthritis Pain) 2 grams topical QID dupilumab (Dupixent) 300 mg (2 mL) subcut Q2W dupilumab (Dupixent) 600 mg (4 mL) subcut ONCE famotidine 40 mg PO DAILY fluticasone propion-salmeterol 500-50 mcg/dose 1 inh inhalation DAILY food supplemt, lactose-reduced (Boost High Protein) 1 ea PO BID PRN Incruse Ellipta 62.5 mcg/actuation (umeclidinium) 1 inh PO DAILY NS lidocaine 4% 2 patches topical DAILY PRN losartan 25 mg PO QPM losartan 50 mg PO DAILY dipti extract 500 mg PO DAILY magnesium oxide 500 mg PO DAILY mecobalamin (vitamin B12) 1,000 mcg PO DAILY miscellaneous medical supply 1 ea miscellaneous DAILY miscellaneous medical supply 1 ea miscellaneous DAILY montelukast 10 mg PO BEDTIME prednisone 5 mg PO DAILY Ventolin HFA 90 mcg/actuation (albuterol sulfate) 2 puffs PO Q4H PRN NS Do you need a note to return to daycare/school/sports/work: No HPI COPD HPI Details 72 YEARS OLD GENTLEMAN IS HERE FOR HIS ROUTINE FOLLOW-UP OF TO 2 MONTHS. HE IS VERY HAPPY AND DOING WELL. HAS ONLY MILD NASAL CONGESTION OFF AND ON. COUGH AND SHORTNESS OF BREATH ARE ALSO MINIMAL. CONTINUES TO USE ALL HIS MEDS INCLUDING DUPIXENT INJECTION EVERY 2 WEEKS. [facility] Medical History Acute adjustment disorder with mixed anxiety and depressed mood Acute costochondritis Allergic rhinitis Anxiety and depression Asthma-COPD overlap syndrome COPD (chronic obstructive pulmonary disease) COPD exacerbation Essential hypertension Reactive airways dysfunction syndrome Screening for hypercholesterolemia Screening for prostate cancer Unspecified asthma, uncomplicated Vitamin deficiency Vitamin deficiency Surgical History History of colonoscopy History of hernia surgery History of surgery on arm Social History Housing: Other Housing Other:: Trailer Home Alcohol intake: never Patient Tobacco Use Status: Never used Tobacco e-Cigarette/Vaping Use: Never Used Second Hand Smoke Exposure: No service: No Current occupational status: retired and disabled Cognitive needs: No Hearing needs: No Vision needs: Yes (Glasses) Review of Systems Const All systems reviewed & are unremarkable except as noted in HPI and below Eyes Reports no additional complaints ENT Reports nasal congestion (daily ) and Reports nasal discharge (intermittent) Card Denies chest pain, Denies irregular heart rhythm and Denies leg edema Resp Reports as per HPI (He has much more pronounced due shortness of breath and nasal congestion ) GI Reports no additional complaints Reports no additional complaints Musc Reports no additional complaints Skin/Breast Reports system reviewed and no additional complaints, except as documented Neuro Reports no additional complaints Psych Reports anxiety Physical Exam Vital Signs: Last Vital Signs Pulse 93 11/26/22 13:10 BP 130/70 11/26/22 13:10 Pulse Ox 94 11/26/22 13:10 Oxygen Delivery Method Room Air 11/26/22 13:10 BMI result Body Mass Index 27.4 Const General: comfortable, no acute distress, alert, awake and anxious Orientation/consciousness: patient oriented x3 HEENT Head: Yes normal to inspection General nose exam: No nasal polyps present, No nasal discharge present and Other nasal findings present (Mild bilateral nasal congestion) Face and sinus: Yes sinuses nontender Mouth: oropharynx normal Throat: Yes posterior oropharynx normal Eyes General: appearance normal, both eyes and all related structures Neck Neck: Yes normal visual inspection, Yes no lymphadenopathy, Yes trachea midline and Yes no JVD Thyroid: Thyroid normal Chest Chest palpation & inspection: normal inspection of the chest, normal palpation of entire chest wall and no tenderness Resp Other: PERCUSSION NOTE RESONANT, BREATH SOUNDS ARE EQUAL ON BOTH SIDES WITH PROLONGED EXPIRATORY PHASE. No cough during the examination and lungs are very clear. Cardio Palpation: normal PMI Rate: regular rate Rhythm: regular rhythm Heart sounds: no gallops and no murmurs GI Palpation (GI): Soft to palpation, nontender, No hepatosplenomegaly present and no masses Auscultation: normal bowel sounds Back/Spine/Pelvis Thoracic/Lumbar Spine: thoracic and lumbar spine normal to inspection Skin General skin exam: no rashes or lesions noted Neuro General: patient oriented x3 and no focal motor deficits Cranial nerves: Yes CN's II-XII intact bilaterally Extrem General: Yes normal to inspection, Yes no clubbing, cyanosis or edema and Yes no calf tenderness Psych Speech and movement: Normal speech and movement present Affect: Anxious affect present Assessment & Plan Assessment & Plan (1) Asthma-COPD overlap syndrome: Comment: PATIENT HAS HAD CHRONIC SEVERE PERSISTENT ASTHMA/COPD. WITH FREQUENT EXACERBATION, AND STEROID DEPENDENCE. NOW THAT HE IS STARTED ON DUPIXENT THERAPY, HE IS DOING MUCH BETTER . HE STILL NEEDS LOT OF SUPPORT, AND CONTINUED INTENSIVE TREATMENT. TX: WILL CONTINUE HIM ON PREDNISONE 5 MG A DAILY AT THIS TIME WIXELA 500-50 1 INHALATION B.I.D. INCRUSE ELLIPTA 1 INHALATION DAILY. ALBUTEROL HFA 2 PUFFS Q 4-6 HOURS P.R.N.. DUPIXENT 300 MG SUBQ Q.2 WEEKS. PREDNISONE 5 MG ON ALTERNATE DAYS . Code(s): J44.9 - Chronic obstructive pulmonary disease, unspecified (2) Anxiety and depression: Comment: This is chronic problem, Currently he does not use any anxiolytic meds. since his respiratory symptoms are under better control his anxiety level has been much less. The patient claims that he is doing well and he does not need to see any psychologist, also does not need anxiolytic agents at this time. Code(s): F41.9 - Anxiety disorder, unspecified; F32.A - Depression, unspecified (3) Allergic rhinitis: Comment: HAS HAD CHRONIC ALLERGIC RHINITIS WITH POSTNASAL DISCHARGE AND CONTRIBUTING TO HIS COUGH WELL REACTIVE AIRWAYS. IT IS CONTROLLED WELL EXPECTED . TX : CONT. SINGULAIR 10 MG DAILY . LORATDINE 10 MG PER DAY ONLY PRN Code(s): J30.9 - Allergic rhinitis, unspecified Medications: Refilled albuterol sulfate 2.5 mg (3 mL) inhalation Q4-6H PRN 180 mL 3RF for wheezing Coding Level of Care Code Est Pt Level 3 (69287) Diagnoses Asthma-COPD overlap syndrome J44.9 Anxiety and depression F41.9; F32.A Allergic rhinitis J30.9
[2022-11-26 13:10] VITALS: BP 130/70; PULSE 93; O2SAT 94; BMI 27.4
== END 2022-11-26 13:26 | disposition home or self-care (01) ==
PROVIDERS: PCP Nurse Practitioner Family; Visit Provider Internal Medicine
DX: J44.9 Chronic obstructive pulmonary disease, unspecified (principal); F41.9 Anxiety disorder, unspecified; F32.A Depression, unspecified; J30.9 Allergic rhinitis, unspecified
CPT/HCPCS: 99213

== ENCOUNTER → 2022-11-26 12:53 | Outpatient (BNVA) | payer OTHER, SELFPAY | PROVIDERS: PCP Nurse Practitioner Family; Visit Provider Internal Medicine | DX: J44.9 Chronic obstructive pulmonary disease, unspecified (principal); J30.9 Allergic rhinitis, unspecified; F41.9 Anxiety disorder, unspecified; F32.A Depression, unspecified; Z79.52 Long term (current) use of systemic steroids; Z79.899 Other long term (current) drug therapy | CPT/HCPCS: 99212 ==

== ENCOUNTER 2023-01-30 16:00 | Outpatient (AMB) | payer OTHER, SELFPAY ==
--- NOTE | 2023-01-30 16:01 | A.OFFPC_ITS ---
Vital Signs 01/30/23 16:02 Height 5 ft 6 in Weight 170 lb BMI 27.4 BP 124/80 Blood Pressure Location Lt brachial Position Sitting Pulse 71 Pulse Source Pulse Oximeter Temp Source Skin Pulse Oximetry (%) 94 Oxygen Delivery Method Room Air Intake Visit Reasons: F/U on PreDM, HTN, HLD Attendant Coin Operated Laundry Required: No Allergies haloperidol [From HALDOL] Adverse Reaction (Severe, Verified 01/30/23 16:11) AKATHESIA cimetidine [From Tagamet] Adverse Reaction (Intermediate, Verified 01/30/23 16:11) GYNECOMASTIA bupropion [BUPROPION] Adverse Reaction (Unknown, Verified 01/30/23 16:11) UNKNOWN Medication List - Last Reconciled 01/30/23 by CHELO Bardales acetaminophen (Tylenol Extra Strength) 1,000 mg PO Q6H PRN albuterol sulfate 90 mcg/actuation (Ventolin HFA) 2 puffs inhalation Q4-6H PRN 30 days albuterol sulfate 2.5 mg (3 mL) inhalation Q4-6H PRN atorvastatin 10 mg PO BEDTIME benzonatate 100 mg PO BID PRN blood pressure monitor As directed cholecalciferol (vitamin D3) 25 mcg PO DAILY diclofenac sodium 1% (Voltaren Arthritis Pain) 2 grams topical QID dupilumab (Dupixent) 300 mg (2 mL) subcut Q2W dupilumab (Dupixent) 600 mg (4 mL) subcut ONCE famotidine 40 mg PO DAILY fluticasone propion-salmeterol 500-50 mcg/dose (Wixela Inhub) 1 ea PO DAILY food supplemt, lactose-reduced (Boost High Protein) 1 ea PO BID PRN Incruse Ellipta 62.5 mcg/actuation (umeclidinium) 1 inh PO DAILY NS lidocaine 4% 2 patches topical DAILY PRN losartan 25 mg PO QPM losartan 50 mg PO DAILY dipti extract 500 mg PO DAILY magnesium oxide 500 mg PO DAILY mecobalamin (vitamin B12) 1,000 mcg PO DAILY miscellaneous medical supply 1 ea miscellaneous DAILY miscellaneous medical supply 1 ea miscellaneous DAILY montelukast 10 mg PO BEDTIME prednisone 5 mg PO DAILY Ventolin HFA 90 mcg/actuation (albuterol sulfate) 2 puffs PO Q4H PRN NS Tobacco use date assessed: 01/30/23 Fall risk assessment: No Falls in past year Last assessed Fall Risk: 01/30/23 Dental Screening Dental Screen Date: 01/30/23 Did you have a dental visit in the last 12 months?: Yes Did you have a dental problem in the last 6 months where you did not have access to dental care?: No Was dental information given to patient?: Patient has dentist HPI F/U on PreDM, HTN, HLD HPI Details Patient is a 72-year-old male who presents today for a routine follow- up. Medical history significant for GERD, prediabetes, hyperlipidemia, insomnia, reactive airways dysfunction syndrome, COPD - followed by pulmonology Dr. Rey, asthma, and hypertension among others. Patient reports not always being compliant with atorvastatin due to medication causing him to have dizziness, he denies dizziness when he does not take atorvastatin, reports taking atorvastatin about 3 days per week. Reports following low-carbohydrate and low-cholesterol diets. Patient denies anxiety or depression. Patient is a Uzbek-speaking and Viktoriya was helping with interpretation. [facility] Medical History Asthma-COPD overlap syndrome COPD exacerbation Anxiety and depression Acute costochondritis Vitamin deficiency Vitamin deficiency Screening for prostate cancer Screening for hypercholesterolemia Acute adjustment disorder with mixed anxiety and depressed mood Reactive airways dysfunction syndrome Allergic rhinitis COPD (chronic obstructive pulmonary disease) Unspecified asthma, uncomplicated Essential hypertension Surgical History History of colonoscopy History of surgery on arm History of hernia surgery Social History Housing: Other Housing Other:: Trailer Home Alcohol intake: never Patient Tobacco Use Status: Never used Tobacco e-Cigarette/Vaping Use: Never Used Second Hand Smoke Exposure: No service: No Current occupational status: retired and disabled Cognitive needs: No Hearing needs: No Vision needs: Yes (Glasses) Questionnaire Thrive Questionnaire Date Thrive assessed: 04/29/22 AUDIT C Alcohol Use Questionnaire (AUDIT-C) 1. How often do you have a drink containing alcohol?: Never 2. How many drinks containing alcohol do you have on a typical day when you are drinking?: 1 or 2 (0) 3. How often do you have six or more drinks on one occasion?: Never Total Score: 0 Score Reviewed/Action Taken: No ANNABELLA-7 AMB Questionnaire ANNABELLA-7 Date ANNABELLA - 7 assessed: 04/29/22 Source: Developed by Drs. Raphael Basurto, Nereida Andrea, Shekhar Flowers and colleagues, with an educational jon from [employer]. Review of Systems Const Denies body aches, Denies chills, Denies fever(s) and Denies headache(s) Eyes Denies change in vision ENT Denies dizziness, Denies otalgia, Denies headache(s), Denies nasal discharge, Denies sinus pain and Denies sore throat Card Denies chest pain, Denies edema, Denies lightheadedness, Denies dyspnea and Reports dyspnea on exertion Resp Denies chest congestion, Reports cough (Intermittent), Denies dyspnea and Reports dyspnea on exertion GI Denies abdominal pain, Denies constipation, Denies diarrhea, Denies nausea and Denies vomiting Denies difficulty urinating and Denies dysuria Musc Denies myalgias, Denies numbness and Denies tingling Skin/Breast Denies lesions and Denies rash Neuro Denies dizziness, Denies headache(s), Denies numbness and Denies tingling Physical exam (Primary Care) Vital Signs: Last Vital Signs Pulse 71 01/30/23 16:02 BP 124/80 01/30/23 16:02 Pulse Ox 94 01/30/23 16:02 Oxygen Delivery Method Room Air 01/30/23 16:02 BMI result Body Mass Index 27.4 Tobacco/Smoking Status: Tobacco use Status Tobacco use date assessed 01/30/23 01/30/23 16:03 Patient Tobacco Use Status Never used Tobacco 01/30/23 16:01 e-Cigarette/Vaping Use Never Used 01/30/23 16:01 Thrive Assessment: Date of Thrive Assessment Date Thrive assessed 04/29/22 01/30/23 16:01 Const General: cooperative and no acute distress Orientation/consciousness: patient oriented x3 HENMT Head: Yes normocephalic and Yes atraumatic Face and sinus: Yes sinuses nontender Mouth: oropharynx normal and moist mucous membranes Throat: Yes posterior oropharynx normal Eyes General: appearance normal, both eyes and all related structures Pupils: Equal, round and reactive pupils present EOM: EOMs intact bilaterally Neck Neck: Yes normal visual inspection, Yes full ROM and Yes no lymphadenopathy Thyroid: Thyroid normal Resp Effort & Inspection: normal respiratory effort Auscultation: clear to auscultation bilaterally, no crackles, no rales, no rhonchi and no wheezes Cardio Rate: regular rate Rhythm: regular rhythm Heart sounds: S1 normal heart sound present, S2 normal heart sound present and no murmurs GI Auscultation: normal bowel sounds Skin General skin exam: no rashes or lesions noted Neuro General: patient oriented x3 Cranial nerves: Yes Equal, round and reactive pupils present Gait exam (Neuro): Normal gait present Extrem General: Yes full ROM and No edema Office Procedures Flu Questionnaire Does the patient have a severe egg allergy?: No Does the patient have severe life threatening allergies?: No Does the patient have a fever or illness today?: No Has the patient ever had Guillain-Severance Syndrome?: No Has the patient ever had any past reaction to a flu shot?: No Results AMB Hemoglobin A1c AMB Hemoglobin A1c 5.4 % Last Edit by BECKY Hernandez on 01/30/23 16:19 Immunizations flu vacc [id number] 6mos up(PF) 60 mcg(15 mcgx4)/0.5 mL IM syringe Performing Provider: CHELO Bardales Performing [facility] Administered by: BECKY Hernandez on 01/30/23 16:17 Dose Route Admin Location Dispensed Lot Number Expiration Date NDC Helicopter Pilot 0.5 mL IM Left Deltoid 0.5 mL [id number] 10/11/23 02372-777-06 [employer] VIS Given Date VIS Provided VIS Publication Date 01/30/23 Single Vaccine 20 Eligibility Eligibility Date Funding Source Not VFC Eligible 01/30/23 Private Results Reviewed Results Reviewed: Laboratory Last Values Hgb A1c (Clinic) 5.4 % (4.0-6.0) 01/30/23 16:02 Assessment and Plan Assessment & Plan (1) GERD (gastroesophageal reflux disease): Code(s): K21.9 - Gastro-esophageal reflux disease without esophagitis Plan: Famotidine 40 mg daily Encouraged to avoid GERD trigger foods Do not lay down 2-3 hours after evening meal (2) Hyperlipidemia: Code(s): E78.5 - Hyperlipidemia, unspecified Plan: LDL 123 10/2022 Not always compliant with atorvastatin due to dizziness with medication, will check lipid panel, if cholesterol still high will switch to a different statin Continue low-cholesterol diet (3) Essential hypertension: Code(s): I10 - Essential (primary) hypertension Plan: Continue losartan 50 mg in the morning and losartan 25 mg in the evening Low-salt diet Goal BP equal or less than 140/90 (4) Prediabetes: Code(s): R73.03 - Prediabetes Plan: A1c 5.4 today Continue low-carbohydrate diet Continue to monitor (5) Asthma-COPD overlap syndrome: Comment: PATIENT HAS HAD CHRONIC SEVERE PERSISTENT ASTHMA/COPD. WITH FREQUENT EXACERBATION, AND STEROID DEPENDENCE. NOW THAT HE IS STARTED ON DUPIXENT THERAPY, HE IS DOING MUCH BETTER . HE STILL NEEDS LOT OF SUPPORT, AND CONTINUED INTENSIVE TREATMENT. TX: WILL CONTINUE HIM ON PREDNISONE 5 MG A DAILY AT THIS TIME WIXELA 500-50 1 INHALATION B.I.D. INCRUSE ELLIPTA 1 INHALATION DAILY. ALBUTEROL HFA 2 PUFFS Q 4-6 HOURS P.R.N.. DUPIXENT 300 MG SUBQ Q.2 WEEKS. PREDNISONE 5 MG ON ALTERNATE DAYS . Code(s): J44.9 - Chronic obstructive pulmonary disease, unspecified Plan: Continue to follow-up with pulmonology Dr. Rey Continue current treatment as prescribed by pulmonology Plan Follow-up in 3 months or sooner as needed Orders: Orders Influenza [id number] Immunization 01/30/23 Z23 - Encounter for immunization AMB Hemoglobin A1c 01/30/23 R73.03 - Prediabetes Lipid Panel 02/02/23 E78.5 - Hyperlipidemia, unspecified Comprehensive [place]. Panel Fast 02/02/23 R73.03 - Prediabetes Coding Level of Care Code Est Pt Level 4 (96870) Diagnoses GERD (gastroesophageal reflux disease) K21.9 Hyperlipidemia E78.5 Essential hypertension I10 Prediabetes R73.03 Asthma-COPD overlap syndrome J44.9
[2023-01-30 16:02] VITALS: BP 124/80; PULSE 71; O2SAT 94; BMI 27.4
== END 2023-01-30 16:28 | disposition home or self-care (01) ==
PROVIDERS: PCP Nurse Practitioner Family; Visit Provider Nurse Practitioner Family
DX: Z23 Encounter for immunization (principal); R73.03 Prediabetes
CPT/HCPCS: 83036; 90471; 90686; 99214

== ENCOUNTER 2023-02-02 08:00 | Outpatient (REF) | payer OTHER, SELFPAY ==
[2023-02-02 09:04] LABS: Alanine Aminotransferase 34 U/L (0-40); Albumin Level 4.3 g/dL (3.5-5.0); Alkaline Phosphatase 63 U/L (39-117); Anion Gap 13 (12-20); Aspartate Amino Transferase 24 U/L (5-37); Bilirubin Total 0.7 mg/dL (0.0-1.0); Blood Urea Nitrogen 11 mg/dL (9-16); Calcium 9.3 mg/dL (8.4-10.2); Carbon Dioxide 27 mmol/L (22-29); Chloride 106 mmol/L (96-108); Cholesterol 179 mg/dL (<200); Estimated Glomerular Filt Rate > 60; Glucose Fasting 108 mg/dL (60-99); HDL Cholesterol 42 mg/dL (>40); LDL Cholesterol Calculated 119 mg/dL (<100); Potassium 3.7 mmol/L (3.3-5.1); Sodium 142 mmol/L (135-145); Total Protein 7.1 g/dL (6.5-8.0); Triglycerides 93 mg/dL (<150)
== END 2023-02-02 08:01 | disposition home or self-care (01) ==
LOC: HO.LAB 08:00
PROVIDERS: PCP Nurse Practitioner Family; Visit Provider Nurse Practitioner Family
DX: R73.03 Prediabetes (principal); E78.5 Hyperlipidemia, unspecified
CPT/HCPCS: 36415; 80053; 80061

== ENCOUNTER 2023-02-23 13:05 | Outpatient (AMB) | payer OTHER, SELFPAY ==
[2023-02-23 13:12] VITALS: BP 110/64; PULSE 91; O2SAT 96; BMI 27.8
--- NOTE | 2023-02-23 13:12 | MHC.OFFVIS ---
Intake Vital Signs 02/23/23 13:12 Height 5 ft 6 in Weight 172 lb BMI 27.8 BP 110/64 Blood Pressure Location Lt brachial Position Sitting Pulse 91 Pulse Source Pulse Oximeter Pulse Oximetry (%) 96 Oxygen Delivery Method Room Air Intake Visit Reasons: copd Intake Note: pt is here for follow up and states he is on his baseline, still on biologic, needs refill on Ventolin and pt would like to know if he should he should get the RSV vaccine. Hog Operator Required: No Allergies haloperidol [From HALDOL] Adverse Reaction (Severe, Verified 02/23/23 13:32) AKATHESIA cimetidine [From Tagamet] Adverse Reaction (Intermediate, Verified 02/23/23 13:32) GYNECOMASTIA bupropion [BUPROPION] Adverse Reaction (Unknown, Verified 02/23/23 13:32) UNKNOWN Medication List - Last Reconciled 02/23/23 by Ivan Rey MD acetaminophen (Tylenol Extra Strength) 1,000 mg PO Q6H PRN albuterol sulfate 90 mcg/actuation (Ventolin HFA) 2 puffs inhalation Q4-6H PRN 30 days albuterol sulfate 2.5 mg (3 mL) inhalation Q4-6H PRN atorvastatin 10 mg PO BEDTIME benzonatate 100 mg PO BID PRN blood pressure monitor As directed cholecalciferol (vitamin D3) 25 mcg PO DAILY diclofenac sodium 1% (Voltaren Arthritis Pain) 2 grams topical QID dupilumab (Dupixent) 300 mg (2 mL) subcut Q2W dupilumab (Dupixent) 600 mg (4 mL) subcut ONCE famotidine 40 mg PO DAILY fluticasone propion-salmeterol 500-50 mcg/dose (Wixela Inhub) 1 ea PO DAILY food supplemt, lactose-reduced (Boost High Protein) 1 ea PO BID PRN Incruse Ellipta 62.5 mcg/actuation (umeclidinium) 1 inh PO DAILY NS lidocaine 4% 2 patches topical DAILY PRN losartan 25 mg PO QPM losartan 50 mg PO DAILY dipti extract 500 mg PO DAILY magnesium oxide 500 mg PO DAILY mecobalamin (vitamin B12) 1,000 mcg PO DAILY miscellaneous medical supply 1 ea miscellaneous DAILY miscellaneous medical supply 1 ea miscellaneous DAILY montelukast 10 mg PO BEDTIME prednisone 5 mg PO DAILY Ventolin HFA 90 mcg/actuation (albuterol sulfate) 2 puffs PO Q4H PRN NS Do you need a note to return to daycare/school/sports/work: No HPI copd HPI Details 72 YEARS OLD GENTLEMAN IS, HERE FOR FOLLOW-UP AFTER 3 MONTHS. NASAL CONGESTION WELL ASTHMA ARE STAYING UNDER GOOD CONTROL. HE IS INJECTING DUPIXENT 300 MG SUBQ EVERY 2 WEEKS. VERY HAPPY WITH HIS CURRENT COMBINATION OF MEDS. HE IS UP TO DATE WITH VACCINES BUT WANTS TO KNOW IF HE CAN HAVE RSV INJECTION . [facility] Medical History Asthma-COPD overlap syndrome COPD exacerbation Anxiety and depression Acute costochondritis Vitamin deficiency Vitamin deficiency Screening for prostate cancer Screening for hypercholesterolemia Acute adjustment disorder with mixed anxiety and depressed mood Reactive airways dysfunction syndrome Allergic rhinitis COPD (chronic obstructive pulmonary disease) Unspecified asthma, uncomplicated Essential hypertension Surgical History History of colonoscopy History of surgery on arm History of hernia surgery Social History Housing: Other Housing Other:: Trailer Home Alcohol intake: never Patient Tobacco Use Status: Never used Tobacco e-Cigarette/Vaping Use: Never Used Second Hand Smoke Exposure: No service: No Current occupational status: retired and disabled Cognitive needs: No Hearing needs: No Vision needs: Yes (Glasses) Review of Systems Const All systems reviewed & are unremarkable except as noted in HPI and below Eyes Reports no additional complaints ENT Reports nasal congestion (daily ) and Reports nasal discharge (intermittent) Card Denies chest pain, Denies irregular heart rhythm and Denies leg edema Resp Reports as per HPI (He has much more pronounced due shortness of breath and nasal congestion ) GI Reports no additional complaints Reports no additional complaints Musc Reports no additional complaints Skin/Breast Reports system reviewed and no additional complaints, except as documented Neuro Reports no additional complaints Psych Reports anxiety Physical Exam Vital Signs: Last Vital Signs Pulse 91 02/23/23 13:12 BP 110/64 02/23/23 13:12 Pulse Ox 96 02/23/23 13:12 Oxygen Delivery Method Room Air 02/23/23 13:12 BMI result Body Mass Index 27.8 Const General: comfortable, no acute distress, alert, awake and anxious Orientation/consciousness: patient oriented x3 HEENT Head: Yes normal to inspection General nose exam: No nasal polyps present, No nasal discharge present and Other nasal findings present (Mild bilateral nasal congestion) Face and sinus: Yes sinuses nontender Mouth: oropharynx normal Throat: Yes posterior oropharynx normal Eyes General: appearance normal, both eyes and all related structures Neck Neck: Yes normal visual inspection, Yes no lymphadenopathy, Yes trachea midline and Yes no JVD Thyroid: Thyroid normal Chest Chest palpation & inspection: normal inspection of the chest, normal palpation of entire chest wall and no tenderness Resp Other: PERCUSSION NOTE RESONANT, BREATH SOUNDS ARE EQUAL ON BOTH SIDES WITH PROLONGED EXPIRATORY PHASE. No cough during the examination and lungs are very clear. Cardio Palpation: normal PMI Rate: regular rate Rhythm: regular rhythm Heart sounds: no gallops and no murmurs GI Palpation (GI): Soft to palpation, nontender, No hepatosplenomegaly present and no masses Auscultation: normal bowel sounds Back/Spine/Pelvis Thoracic/Lumbar Spine: thoracic and lumbar spine normal to inspection Skin General skin exam: no rashes or lesions noted Neuro General: patient oriented x3 and no focal motor deficits Cranial nerves: Yes CN's II-XII intact bilaterally Extrem General: Yes normal to inspection, Yes no clubbing, cyanosis or edema and Yes no calf tenderness Psych Speech and movement: Normal speech and movement present Affect: Anxious affect present Assessment & Plan Assessment & Plan (1) Asthma-COPD overlap syndrome: Comment: PATIENT HAS HAD CHRONIC SEVERE PERSISTENT ASTHMA/COPD. WITH FREQUENT EXACERBATION, AND STEROID DEPENDENCE. NOW THAT HE IS STARTED ON DUPIXENT THERAPY, HE IS DOING MUCH BETTER . HE STILL NEEDS LOT OF SUPPORT, AND CONTINUED INTENSIVE TREATMENT. TX: WILL CONTINUE HIM ON PREDNISONE 5 MG BUT ON ALTERNATE DAYS . WIXELA 500-50 1 INHALATION B.I.D. INCRUSE ELLIPTA 1 INHALATION DAILY. ALBUTEROL HFA 2 PUFFS Q 4-6 HOURS P.R.N.. DUPIXENT 300 MG SUBQ Q.2 WEEKS. PREDNISONE 5 MG ON ALTERNATE DAYS . ADVISE THAT HE SHOULD GET RSV VACCINE. Code(s): J44.9 - Chronic obstructive pulmonary disease, unspecified (2) Anxiety and depression: Comment: This is chronic problem, Currently he does not use any anxiolytic meds. since his respiratory symptoms are under better control his anxiety level has been much less. The patient claims that he is doing well and he does not need to see any psychologist, also does not need anxiolytic agents at this time. Code(s): F41.9 - Anxiety disorder, unspecified; F32.A - Depression, unspecified (3) Reactive airways dysfunction syndrome: Comment: HE HAS CHRONIC REACTIVE AIRWAYS SYNDROME. TX: SEE UNDER ASTHMA/COPD MANAGEMENT. Code(s): J68.3 - Other acute and subacute respiratory conditions due to chemicals, gases, fumes and vapors (4) Allergic rhinitis: Comment: HAS HAD CHRONIC ALLERGIC RHINITIS WITH POSTNASAL DISCHARGE AND CONTRIBUTING TO HIS COUGH WELL REACTIVE AIRWAYS. IT IS CONTROLLED WELL EXPECTED . TX : CONT. SINGULAIR 10 MG DAILY . LORATDINE 10 MG PER DAY ONLY PRN Code(s): J30.9 - Allergic rhinitis, unspecified Coding Level of Care Code Est Pt Level 3 (16348) Diagnoses Asthma-COPD overlap syndrome J44.9 Anxiety and depression F41.9; F32.A Reactive airways dysfunction syndrome J68.3 Allergic rhinitis J30.9
== END 2023-02-23 13:33 | disposition home or self-care (01) ==
PROVIDERS: PCP Nurse Practitioner Family; Visit Provider Internal Medicine
DX: J44.9 Chronic obstructive pulmonary disease, unspecified (principal); F41.9 Anxiety disorder, unspecified; F32.A Depression, unspecified; J68.3 Other acute and subacute respiratory conditions due to chemicals, gases, fumes and vapors; J30.9 Allergic rhinitis, unspecified
CPT/HCPCS: 99213

== ENCOUNTER → 2023-02-23 13:05 | Outpatient (BNVA) | payer OTHER, SELFPAY | PROVIDERS: PCP Nurse Practitioner Family; Visit Provider Internal Medicine | DX: J44.9 Chronic obstructive pulmonary disease, unspecified (principal); J30.9 Allergic rhinitis, unspecified; J68.3 Other acute and subacute respiratory conditions due to chemicals, gases, fumes and vapors; F41.9 Anxiety disorder, unspecified; F32.A Depression, unspecified | CPT/HCPCS: 99212 ==

== ENCOUNTER 2023-04-21 10:09 | Outpatient (AMB) | payer OTHER, SELFPAY ==
--- NOTE | 2023-04-21 10:13 | MHC.PC.OV ---
Vital Signs 04/21/23 10:16 Height 5 ft 6 in Weight 174 lb 2 oz BMI 28.1 BP 130/70 Blood Pressure Location Lt brachial Position Sitting Pulse 79 Pulse Source Pulse Oximeter Pulse Oximetry (%) 95 Oxygen Delivery Method Room Air Intake Visit Reasons: F/U on HTN, HLD, PreDM Intake Note: Patient is here to follow up on HTN, HLD, PreDM. Vacuum Tank Tender Required: No Intake Counselor: Present Accompanied by: Spouse Allergies haloperidol [From HALDOL] Adverse Reaction (Severe, Verified 04/22/23 05:58) AKATHESIA cimetidine [From Tagamet] Adverse Reaction (Intermediate, Verified 04/22/23 05:58) GYNECOMASTIA bupropion [BUPROPION] Adverse Reaction (Unknown, Verified 04/22/23 05:58) UNKNOWN Medication List - Last Reconciled 04/22/23 by Eris Grajeda MD acetaminophen (Tylenol Extra Strength) 1,000 mg PO Q6H PRN albuterol sulfate 2.5 mg (3 mL) PO Q4-6H PRN albuterol sulfate 90 mcg/actuation (Ventolin HFA) 2 puffs inhalation Q4-6H PRN atorvastatin 10 mg PO BEDTIME benzonatate 100 mg PO BID PRN blood pressure monitor As directed cholecalciferol (vitamin D3) 25 mcg PO DAILY diclofenac sodium 1% (Voltaren Arthritis Pain) 2 grams topical QID dupilumab (Dupixent) 300 mg (2 mL) subcut Q2W dupilumab (Dupixent) 600 mg (4 mL) subcut ONCE famotidine 40 mg PO DAILY fluticasone propion-salmeterol 500-50 mcg/dose (Wixela Inhub) 1 ea PO DAILY food supplemt, lactose-reduced (Boost High Protein) 1 ea PO BID PRN Incruse Ellipta 62.5 mcg/actuation (umeclidinium) 1 inh PO DAILY NS lidocaine 4% 2 patches topical DAILY PRN losartan 50 mg PO DAILY losartan 25 mg PO QPM dipti extract 500 mg PO DAILY magnesium oxide 500 mg PO DAILY mecobalamin (vitamin B12) 1,000 mcg PO DAILY miscellaneous medical supply 1 ea miscellaneous DAILY miscellaneous medical supply 1 ea miscellaneous DAILY montelukast 10 mg PO BEDTIME prednisone 5 mg PO DAILY Ventolin HFA 90 mcg/actuation (albuterol sulfate) 2 puffs PO Q4H PRN NS Tobacco use date assessed: 04/21/23 Fall risk assessment: No Falls in past year Last assessed Fall Risk: 04/21/23 Dental Screening Dental Screen Date: 04/21/23 Did you have a dental visit in the last 12 months?: Yes Did you have a dental problem in the last 6 months where you did not have access to dental care?: No Was dental information given to patient?: Patient has dentist HPI F/U on HTN, HLD, PreDM HPI Details 72-year-old male presents to the office to discuss his medical issues. I will be his new primary care provider as his previous provider has left the practice. Past medical history includes COPD, hyperlipidemia and reflux disease. Patient is compliant with medications. Able to function and do all activities of daily living. [facility] Medical History Asthma-COPD overlap syndrome COPD exacerbation Anxiety and depression Acute costochondritis Vitamin deficiency Vitamin deficiency Screening for prostate cancer Screening for hypercholesterolemia Acute adjustment disorder with mixed anxiety and depressed mood Reactive airways dysfunction syndrome Allergic rhinitis COPD (chronic obstructive pulmonary disease) Unspecified asthma, uncomplicated Essential hypertension Surgical History History of colonoscopy History of surgery on arm History of hernia surgery Social History Housing: Other Housing Other:: Trailer Home Alcohol intake: never Patient Tobacco Use Status: Never used Tobacco e-Cigarette/Vaping Use: Never Used Second Hand Smoke Exposure: No service: No Current occupational status: retired and disabled Cognitive needs: No Hearing needs: No Vision needs: Yes (Glasses) Questionnaire PHQ-9 Over the last 2 weeks, how often have you been bothered by any of the following problems? 1. Little interest or pleasure in doing things: not at all 2. Feeling down, depressed, or hopeless: not at all 3. Trouble falling or staying asleep, or sleeping too much: not at all 4. Feeling tired or having little energy: not at all 5. Poor appetite or overeating: not at all 6. Feeling bad about yourself - or that you are a failure or have let yourself or your family down: not at all 7. Trouble concentrating on things, such as reading the newspaper or watching television: not at all 8. Moving or speaking so slowly that other people could have noticed. Or the opposite - being so fidgety or restless that you have been moving around a lot more than usual: not at all 9. Thoughts that you would be better off or of hurting yourself in some way: not at all Total score: 0 Depression Screening Interpretation: Negative Depression Screening Done: Yes Source: Developed by Drs. Raphael Basurto, Nereida Andrea, Shekhar Flowers and colleagues, with an educational jon from [employer]. Thrive Questionnaire Date Thrive assessed: 04/21/23 I am a: Patient What is your living situation today?: I have a steady place to live Within the past 12 months, did the food you bought not last and you didn't have the money to get more?: Never true Within the past 12 months, did you worry whether your food would run out before you got money to buy more?: Never true Do you have trouble paying for medicines?: No Do you have trouble getting transportation to medical appointments?: No Do you have trouble paying your heating and electricity bill?: No Do you have trouble taking care of your child, family member or friend?: No Do you have trouble with day-to-day activities such as bathing, preparing meals, shopping, managing finances, etc.?: No Are you currently unemployed and looking for a job?: No Are you interested in more education?: No Currently or been in a relationship where the following occur: no concerns reported AUDIT C Alcohol Use Questionnaire (AUDIT-C) 1. How often do you have a drink containing alcohol?: Never Total Score: 0 ANNABELLA-7 AMB Questionnaire ANNABELLA-7 Date ANNABELLA - 7 assessed: 04/21/23 Feeling nervous, anxious, or on edge: 0 = Not at all Not being able to stop or control worryin = Not at all Worrying too much about different things: 0 = Not at all Trouble relaxin = Not at all Being so restless that it is hard to sit still: 0 = Not at all Becoming easily annoyed or irritable: 0 = Not at all Feeling afraid as if something awful might happen: 0 = Not at all Total ANNABELLA-7 score (0-4 normal; 5-9 mild; 10-14 moderate; 15-21 severe): 0 Source: Developed by Drs. Raphael Basurto, Nereida Andrea, Shekhar Flowers and colleagues, with an educational jon from [employer]. Physical exam (Primary Care) Vital Signs: Last Vital Signs Pulse 79 04/21/23 10:16 BP 130/70 04/21/23 10:16 Pulse Ox 95 04/21/23 10:16 Oxygen Delivery Method Room Air 04/21/23 10:16 BMI result Body Mass Index 28.1 Tobacco/Smoking Status: Tobacco use Status Tobacco use date assessed 04/21/23 04/21/23 10:22 Patient Tobacco Use Status Never used Tobacco 04/21/23 10:22 e-Cigarette/Vaping Use Never Used 04/21/23 10:22 PHQ-9: PHQ-9 Score PHQ-9: Total score 0 04/21/23 10:39 Depression Screening Interpretation: Negative Thrive Assessment: Date of Thrive Assessment Date Thrive assessed 04/21/23 04/21/23 10:22 Currently or been in a relationship where the following occur: no concerns reported Const General: cooperative and healthy appearing Nutritional Appearance: well nourished Orientation/consciousness: patient oriented x3 Limitations: no limitations HENMT Head: Yes normal to inspection Eyes General: appearance normal, both eyes and all related structures Neck Neck: Yes normal visual inspection Chest Chest palpation & inspection: normal palpation of entire chest wall Resp Effort & Inspection: normal respiratory effort Neuro General: patient oriented x3 Assessment and Plan Assessment & Plan (1) Hyperlipidemia: Code(s): E78.5 - Hyperlipidemia, unspecified Plan: Blood work has been ordered. Will call with the results. (2) COPD exacerbation: Code(s): J44.1 - Chronic obstructive pulmonary disease with (acute) exacerbation Plan: Condition is stable. Continue current medications. (3) Anxiety and depression: Comment: This is chronic problem, Currently he does not use any anxiolytic meds. since his respiratory symptoms are under better control his anxiety level has been much less. The patient claims that he is doing well and he does not need to see any psychologist, also does not need anxiolytic agents at this time. Code(s): F41.9 - Anxiety disorder, unspecified; F32.A - Depression, unspecified Orders: Orders Basic Metabolic Panel 04/21/23 E78.5 - Hyperlipidemia, unspecified Thyroid Stimulating Hormone 04/21/23 E78.5 - Hyperlipidemia, unspecified Complete Blood Count no Diff 04/21/23 E78.5 - Hyperlipidemia, unspecified Lipid Panel 04/21/23 E78.5 - Hyperlipidemia, unspecified Liver Panel 04/21/23 E78.5 - Hyperlipidemia, unspecified Medications: Refilled losartan 25 mg PO QPM 90 tabs 1RF I10 - Essential (primary) hypertension cholecalciferol (vitamin D3) 25 mcg PO DAILY 90 tabs 1RF R79.89 - Other specified abnormal findings of blood chemistry Coding Level of Care Code Est Pt Level 4 (87929) Diagnoses Hyperlipidemia E78.5 COPD exacerbation J44.1 Anxiety and depression F41.9; F32.A
[2023-04-21 10:16] VITALS: BP 130/70; PULSE 79; O2SAT 95; BMI 28.1
== END 2023-04-21 10:44 | disposition home or self-care (01) ==
PROVIDERS: PCP Internal Medicine; Visit Provider Internal Medicine
DX: E78.5 Hyperlipidemia, unspecified (principal); J44.1 Chronic obstructive pulmonary disease with (acute) exacerbation; F41.9 Anxiety disorder, unspecified; F32.A Depression, unspecified
CPT/HCPCS: 99214

== ENCOUNTER 2023-04-21 11:07 | Outpatient (REF) | payer OTHER, SELFPAY ==
[2023-04-21 11:39] LABS: Hematocrit 46.8 % (42.0-52.0); Hemoglobin 15.4 g/dl (14.0-18.0); Mean Corpuscular HGB Conc 32.9 g/dl (31.0-36.0); Mean Corpuscular Volume 88.1 fL (80.0-98.0); Mean Platelet Volume 9.1 fL (9.4-12.4); Platelet Count 213 X10*3/uL (160-400); Red Blood Count 5.31 X10*6/uL (4.60-5.80); Red Cell Distribution Width 12.8 % (11.0-16.0); White Blood Count 7.4 X10*3/uL (4.8-10.8)
[2023-04-21 13:45] LABS: Alanine Aminotransferase 32 U/L (0-40); Albumin Level 4.4 g/dL (3.5-5.0); Alkaline Phosphatase 53 U/L (39-117); Anion Gap 11 (12-20); Aspartate Amino Transferase 25 U/L (5-37); Bilirubin Direct 0.1 mg/dL (0.0-0.5); Bilirubin Total 0.5 mg/dL (0.0-1.0); Blood Urea Nitrogen 10 mg/dL (9-16); Calcium 9.3 mg/dL (8.4-10.2); Carbon Dioxide 31 mmol/L (22-29); Chloride 106 mmol/L (96-108); Cholesterol 183 mg/dL (<200); Estimated Glomerular Filt Rate > 60; Glucose Random 72 mg/dL (60-115); HDL Cholesterol 44 mg/dL (>40); LDL Cholesterol Calculated 108 mg/dL (<100); Potassium 3.9 mmol/L (3.3-5.1); Sodium 144 mmol/L (135-145); Thyroid Stimulating Hormone 0.51 uIU/mL (0.32-4.0); Triglycerides 159 mg/dL (<150)
== END 2023-04-21 11:08 | disposition home or self-care (01) ==
LOC: HO.LAB 11:07
PROVIDERS: PCP Internal Medicine; Visit Provider Internal Medicine
DX: E78.5 Hyperlipidemia, unspecified (principal)
CPT/HCPCS: 36415; 80048; 80061; 80076; 84443; 85027

== ENCOUNTER 2023-06-03 15:19 | Outpatient (AMB) | payer OTHER, SELFPAY ==
--- NOTE | 2023-06-03 15:28 | MHC.OFFVIS ---
Intake Vital Signs 06/03/23 15:29 Height 5 ft 6 in Weight 172 lb BMI 27.8 BP 120/60 Blood Pressure Location Lt brachial Position Sitting Pulse 83 Pulse Source Pulse Oximeter Pulse Oximetry (%) 93 Oxygen Delivery Method Room Air Intake Visit Reasons: copd Allergies haloperidol [From HALDOL] Adverse Reaction (Severe, Verified 06/03/23 15:53) AKATHESIA cimetidine [From Tagamet] Adverse Reaction (Intermediate, Verified 06/03/23 15:53) GYNECOMASTIA bupropion [BUPROPION] Adverse Reaction (Unknown, Verified 06/03/23 15:53) UNKNOWN Medication List - Last Reconciled 06/03/23 by Ivan Rey MD acetaminophen (Tylenol Extra Strength) 1,000 mg PO Q6H PRN albuterol sulfate 2.5 mg (3 mL) PO Q4-6H PRN albuterol sulfate 90 mcg/actuation (Ventolin HFA) 2 puffs inhalation Q4-6H PRN atorvastatin 10 mg PO BEDTIME blood pressure monitor As directed cholecalciferol (vitamin D3) 25 mcg PO DAILY dupilumab (Dupixent) 300 mg (2 mL) subcut Q2W dupilumab (Dupixent) 600 mg (4 mL) subcut ONCE famotidine 40 mg PO DAILY fluticasone propion-salmeterol 500-50 mcg/dose (Wixela Inhub) 1 ea PO DAILY Incruse Ellipta 62.5 mcg/actuation (umeclidinium) 1 inh PO DAILY NS lidocaine 4% 2 patches topical DAILY PRN losartan 100 mg PO DAILY magnesium oxide 500 mg PO DAILY mecobalamin (vitamin B12) 1,000 mcg PO DAILY miscellaneous medical supply 1 ea miscellaneous DAILY miscellaneous medical supply 1 ea miscellaneous DAILY montelukast 10 mg PO BEDTIME prednisone 5 mg PO DAILY Ventolin HFA 90 mcg/actuation (albuterol sulfate) 2 puffs PO Q4H PRN NS Do you need a note to return to daycare/school/sports/work: No HPI copd HPI Details Robert 72 years old gentleman comes for his routine follow-up. He is doing very well. He complains of nasal congestion only once in a while. He has very little cough. And he denies having any acute attacks of asthma. He is injecting Dupixent 300 mg q.2 weeks. [facility] Medical History Asthma-COPD overlap syndrome COPD exacerbation Anxiety and depression Acute costochondritis Vitamin deficiency Vitamin deficiency Screening for prostate cancer Screening for hypercholesterolemia Acute adjustment disorder with mixed anxiety and depressed mood Reactive airways dysfunction syndrome Allergic rhinitis COPD (chronic obstructive pulmonary disease) Unspecified asthma, uncomplicated Essential hypertension Surgical History History of colonoscopy History of surgery on arm History of hernia surgery Social History Housing: Other Housing Other:: Trailer Home Alcohol intake: never Patient Tobacco Use Status: Never used Tobacco e-Cigarette/Vaping Use: Never Used Second Hand Smoke Exposure: No service: No Current occupational status: retired and disabled Cognitive needs: No Hearing needs: No Vision needs: Yes (Glasses) Review of Systems Const All systems reviewed & are unremarkable except as noted in HPI and below Eyes Reports no additional complaints ENT Reports nasal congestion (daily ) and Reports nasal discharge (intermittent) Card Denies chest pain, Denies irregular heart rhythm and Denies leg edema Resp Reports as per HPI (He has much more pronounced due shortness of breath and nasal congestion ) GI Reports no additional complaints Reports no additional complaints Musc Reports no additional complaints Skin/Breast Reports system reviewed and no additional complaints, except as documented Neuro Reports no additional complaints Psych Reports anxiety Physical Exam Vital Signs: Last Vital Signs Pulse 83 06/03/23 15:29 BP 120/60 06/03/23 15:29 Pulse Ox 93 06/03/23 15:29 Oxygen Delivery Method Room Air 06/03/23 15:29 BMI result Body Mass Index 27.8 Const General: comfortable, no acute distress, alert, awake and anxious Orientation/consciousness: patient oriented x3 HEENT Head: Yes normal to inspection General nose exam: No nasal polyps present, No nasal discharge present and Other nasal findings present (Mild bilateral nasal congestion) Face and sinus: Yes sinuses nontender Mouth: oropharynx normal Throat: Yes posterior oropharynx normal Eyes General: appearance normal, both eyes and all related structures Neck Neck: Yes normal visual inspection, Yes no lymphadenopathy, Yes trachea midline and Yes no JVD Thyroid: Thyroid normal Chest Chest palpation & inspection: normal inspection of the chest, normal palpation of entire chest wall and no tenderness Resp Other: PERCUSSION NOTE RESONANT, BREATH SOUNDS ARE EQUAL ON BOTH SIDES WITH PROLONGED EXPIRATORY PHASE. No cough during the examination and lungs are very clear. Cardio Palpation: normal PMI Rate: regular rate Rhythm: regular rhythm Heart sounds: no gallops and no murmurs GI Palpation (GI): Soft to palpation, nontender, No hepatosplenomegaly present and no masses Auscultation: normal bowel sounds Back/Spine/Pelvis Thoracic/Lumbar Spine: thoracic and lumbar spine normal to inspection Skin General skin exam: no rashes or lesions noted Neuro General: patient oriented x3 and no focal motor deficits Cranial nerves: Yes CN's II-XII intact bilaterally Extrem General: Yes normal to inspection, Yes no clubbing, cyanosis or edema and Yes no calf tenderness Psych Speech and movement: Normal speech and movement present Affect: Anxious affect present Assessment & Plan Assessment & Plan (1) Asthma-COPD overlap syndrome: Comment: PATIENT HAS HAD CHRONIC SEVERE PERSISTENT ASTHMA/COPD. WITH FREQUENT EXACERBATION, AND STEROID DEPENDENCE. NOW THAT HE IS STARTED ON DUPIXENT THERAPY, HE IS DOING MUCH BETTER . HE STILL NEEDS LOT OF SUPPORT, AND CONTINUED INTENSIVE TREATMENT. ADVISE THAT HE SHOULD GET RSV VACCINE. Code(s): J44.9 - Chronic obstructive pulmonary disease, unspecified Plan: TX: WILL CONTINUE HIM ON PREDNISONE 5 MG BUT ON ALTERNATE DAYS . WIXELA 500-50 1 INHALATION B.I.D. INCRUSE ELLIPTA 1 INHALATION DAILY. ALBUTEROL HFA 2 PUFFS Q 4-6 HOURS P.R.N.. DUPIXENT 300 MG SUBQ Q.2 WEEKS. PREDNISONE 5 MG ON ALTERNATE DAYS . (2) Allergic rhinitis: Comment: HAS HAD CHRONIC ALLERGIC RHINITIS WITH POSTNASAL DISCHARGE AND CONTRIBUTING TO HIS COUGH WELL REACTIVE AIRWAYS. IT IS CONTROLLED WELL EXPECTED . Code(s): J30.9 - Allergic rhinitis, unspecified Plan: TX : CONT. SINGULAIR 10 MG DAILY . LORATDINE 10 MG PER DAY ONLY PRN Coding Level of Care Code Est Pt Level 3 (54895) Diagnoses Asthma-COPD overlap syndrome J44.9 Allergic rhinitis J30.9
[2023-06-03 15:29] VITALS: BP 120/60; PULSE 83; O2SAT 93; BMI 27.8
== END 2023-06-03 15:53 | disposition home or self-care (01) ==
PROVIDERS: PCP Nurse Practitioner Family; Visit Provider Internal Medicine
DX: J44.9 Chronic obstructive pulmonary disease, unspecified (principal); J30.9 Allergic rhinitis, unspecified
CPT/HCPCS: 99213

== ENCOUNTER → 2023-06-03 15:19 | Outpatient (BNVA) | payer OTHER, SELFPAY | PROVIDERS: PCP Nurse Practitioner Family; Visit Provider Internal Medicine | DX: J44.9 Chronic obstructive pulmonary disease, unspecified (principal); J30.9 Allergic rhinitis, unspecified | CPT/HCPCS: 99212 ==

== ENCOUNTER 2023-07-29 13:07 | Outpatient (AMB) | payer OTHER, SELFPAY ==
--- NOTE | 2023-07-29 13:17 | A.OFFPC_ITS ---
Vital Signs 07/29/23 13:18 Height 5 ft 6 in Weight 171 lb 4 oz BMI 27.6 BP 110/60 Blood Pressure Location Lt brachial Position Sitting Pulse 81 Pulse Source Pulse Oximeter Pulse Oximetry (%) 93 Oxygen Delivery Method Room Air Intake Visit Reasons: PE Intake Note: Patient is here today for a physical. Calender Let Off Operator Required: Yes Calender Let Off Operator Language: Nurse Manager Name: Dereck ([id number]) Information Interpreted: non-clinical & clinical Automobile Service Station Manager: Present Accompanied by: Spouse Allergies haloperidol [From HALDOL] Adverse Reaction (Severe, Verified 07/29/23 13:41) AKATHESIA cimetidine [From Tagamet] Adverse Reaction (Intermediate, Verified 07/29/23 13:41) GYNECOMASTIA bupropion [BUPROPION] Adverse Reaction (Unknown, Verified 07/29/23 13:41) UNKNOWN Medication List - Last Reconciled 07/29/23 by Eris Grajeda MD acetaminophen (Tylenol Extra Strength) 1,000 mg PO Q6H PRN albuterol sulfate 2.5 mg (3 mL) PO Q4-6H PRN albuterol sulfate 90 mcg/actuation (Ventolin HFA) 2 puffs inhalation Q4-6H PRN atorvastatin 10 mg PO BEDTIME blood pressure monitor As directed cholecalciferol (vitamin D3) 25 mcg PO DAILY dupilumab (Dupixent) 300 mg (2 mL) subcut Q2W famotidine 40 mg PO DAILY fluticasone propion-salmeterol 500-50 mcg/dose (Wixela Inhub) 1 ea PO DAILY Incruse Ellipta 62.5 mcg/actuation (umeclidinium) 1 inh PO DAILY NS losartan 100 mg PO DAILY magnesium oxide 500 mg PO DAILY mecobalamin (vitamin B12) 1,000 mcg PO DAILY miscellaneous medical supply 1 ea miscellaneous DAILY miscellaneous medical supply 1 ea miscellaneous DAILY montelukast 10 mg PO BEDTIME prednisone 5 mg PO DAILY Ventolin HFA 90 mcg/actuation (albuterol sulfate) 2 puffs PO Q4H PRN NS Tobacco use date assessed: 04/21/23 Fall risk assessment: No Falls in past year Last assessed Fall Risk: 07/29/23 Dental Screening Dental Screen Date: 04/21/23 HPI PE HPI Details Patient presents to the office requesting an annual physical. [facility] Medical History Asthma-COPD overlap syndrome COPD exacerbation Anxiety and depression Acute costochondritis Vitamin deficiency Vitamin deficiency Screening for prostate cancer Screening for hypercholesterolemia Acute adjustment disorder with mixed anxiety and depressed mood Reactive airways dysfunction syndrome Allergic rhinitis COPD (chronic obstructive pulmonary disease) Unspecified asthma, uncomplicated Essential hypertension Surgical History History of colonoscopy History of surgery on arm History of hernia surgery Social History Housing: Other Housing Other:: Trailer Home Alcohol intake: never Patient Tobacco Use Status: Never used Tobacco e-Cigarette/Vaping Use: Never Used Second Hand Smoke Exposure: No service: No Current occupational status: retired and disabled Cognitive needs: No Hearing needs: No Vision needs: Yes (Glasses) Questionnaire Thrive Questionnaire Date Thrive assessed: 04/21/23 ANNABELLA-7 AMB Questionnaire ANNABELLA-7 Date ANNABELLA - 7 assessed: 04/21/23 Source: Developed by Drs. Raphael Basurto, Nereida Andrea, Shekhar Flowers and colleagues, with an educational jon from [employer]. Physical exam (Primary Care) Vital Signs: Last Vital Signs Pulse 81 07/29/23 13:18 BP 110/60 07/29/23 13:18 Pulse Ox 93 07/29/23 13:18 Oxygen Delivery Method Room Air 07/29/23 13:18 BMI result Body Mass Index 27.6 Tobacco/Smoking Status: Tobacco use Status Tobacco use date assessed 04/21/23 04/21/23 10:22 Patient Tobacco Use Status Never used Tobacco 04/21/23 10:22 e-Cigarette/Vaping Use Never Used 04/21/23 10:22 Thrive Assessment: Date of Thrive Assessment Date Thrive assessed 04/21/23 04/21/23 10:22 Const General: cooperative and healthy appearing Nutritional Appearance: well nourished Orientation/consciousness: patient oriented x3 Limitations: no limitations HENMT Head: Yes normal to inspection Eyes General: appearance normal, both eyes and all related structures Neck Neck: Yes normal visual inspection Chest Chest palpation & inspection: normal palpation of entire chest wall Resp Effort & Inspection: normal respiratory effort Neuro General: patient oriented x3 Results AMB Hemoglobin A1c AMB Hemoglobin A1c 6.2 % Last Edit by BECKY Butler on 07/29/23 13:32 Assessment and Plan Assessment & Plan (1) Annual physical exam: Code(s): Z00.00 - Encounter for general adult medical examination without abnormal findings Plan: Blood work is in range. Patient is declining screening colonoscopy. Orders: Orders AMB Hemoglobin A1c Today R73.03 - Prediabetes Coding Level of Care Code Est Pt Prev Care >65y(94233) Diagnoses Annual physical exam Z00.00
[2023-07-29 13:18] VITALS: BP 110/60; PULSE 81; O2SAT 93; BMI 27.6
== END 2023-07-29 13:40 | disposition home or self-care (01) ==
PROVIDERS: PCP Internal Medicine; Visit Provider Internal Medicine
DX: Z00.00 Encounter for general adult medical examination without abnormal findings (principal); R73.03 Prediabetes
CPT/HCPCS: 83036; 99397

== ENCOUNTER 2023-09-08 13:43 | Outpatient (AMB) | payer OTHER, SELFPAY ==
[2023-09-08 13:53] VITALS: BP 122/70; PULSE 72; O2SAT 95; BMI 27.6
--- NOTE | 2023-09-08 13:53 | A.OFFVIS_ITS ---
Vital Signs 09/08/23 13:53 Height 5 ft 6 in Weight 170 lb 13.732 oz BMI 27.6 BP 122/70 Blood Pressure Location Lt brachial Position Sitting Pulse 72 Pulse Source Pulse Oximeter Pulse Oximetry (%) 95 Oxygen Delivery Method Room Air Intake Visit Reasons: COPD Intake Note: pt is here for follow up and states he is okay today, pollen affects him, needs refill on prednisone 5mg and ventolin hfa Infrastructure Project Manager Required: No Allergies haloperidol [From HALDOL] Adverse Reaction (Severe, Verified 09/08/23 13:56) AKATHESIA cimetidine [From Tagamet] Adverse Reaction (Intermediate, Verified 09/08/23 13:56) GYNECOMASTIA bupropion [BUPROPION] Adverse Reaction (Unknown, Verified 09/08/23 13:56) UNKNOWN [facility] Medical History Asthma-COPD overlap syndrome COPD exacerbation Anxiety and depression Acute costochondritis Vitamin deficiency Vitamin deficiency Screening for prostate cancer Screening for hypercholesterolemia Acute adjustment disorder with mixed anxiety and depressed mood Reactive airways dysfunction syndrome Allergic rhinitis COPD (chronic obstructive pulmonary disease) Unspecified asthma, uncomplicated Essential hypertension Surgical History History of colonoscopy History of surgery on arm History of hernia surgery Social History Housing: Other Housing Other:: Trailer Home Alcohol intake: never Patient Tobacco Use Status: Never used Tobacco e-Cigarette/Vaping Use: Never Used Second Hand Smoke Exposure: No service: No Current occupational status: retired and disabled Cognitive needs: No Hearing needs: No Vision needs: Yes (Glasses) Coding
--- NOTE | 2023-09-08 14:07 | MHC.OFFVIS ---
Vital Signs 09/08/23 13:53 09/08/23 14:15 Height 5 ft 6 in Weight 170 lb 13.732 oz BMI 27.6 27.6 BP 122/70 Blood Pressure Location Lt brachial Position Sitting Pulse 72 Pulse Source Pulse Oximeter Pulse Oximetry (%) 95 Oxygen Delivery Method Room Air Intake Visit Reasons: COPD Allergies haloperidol [From HALDOL] Adverse Reaction (Severe, Verified 09/08/23 14:07) AKATHESIA cimetidine [From Tagamet] Adverse Reaction (Intermediate, Verified 09/08/23 14:07) GYNECOMASTIA bupropion [BUPROPION] Adverse Reaction (Unknown, Verified 09/08/23 14:07) UNKNOWN Medication List - Last Reconciled 09/08/23 by Ivan Rey MD acetaminophen (Tylenol Extra Strength) 1,000 mg PO Q6H PRN albuterol sulfate 2.5 mg (3 mL) PO Q4-6H PRN albuterol sulfate 90 mcg/actuation (Ventolin HFA) 2 puffs inhalation Q4-6H PRN atorvastatin 10 mg PO BEDTIME blood pressure monitor As directed cholecalciferol (vitamin D3) 25 mcg PO DAILY dupilumab (Dupixent) 300 mg (2 mL) subcut Q2W famotidine 40 mg PO DAILY fluticasone propion-salmeterol 500-50 mcg/dose (Wixela Inhub) 1 ea PO DAILY Incruse Ellipta 62.5 mcg/actuation (umeclidinium) 1 inh PO DAILY NS losartan 100 mg PO DAILY magnesium oxide 500 mg PO DAILY mecobalamin (vitamin B12) 1,000 mcg PO DAILY miscellaneous medical supply 1 ea miscellaneous DAILY miscellaneous medical supply 1 ea miscellaneous DAILY montelukast 10 mg PO BEDTIME prednisone 5 mg PO DAILY Ventolin HFA 90 mcg/actuation (albuterol sulfate) 2 puffs PO Q4H PRN NS Do you need a note to return to daycare/school/sports/work: No HPI HPI COPD: Details: 73 years old gentleman with longstanding history of allergic rhinitis, bronchial asthma/COPD, who has been dependent on oral steroids, Is now doing quite well with the biologic treatment. Since he has been started on Dupixent 300 mg subQ q.2 weeks he has done well. He still gets intermittent flare ups, but can cope with them okay. He continues to be on prednisone 5 mg a day, on which he has become somewhat dependent. [facility] Medical History Asthma-COPD overlap syndrome COPD exacerbation Anxiety and depression Acute costochondritis Vitamin deficiency Vitamin deficiency Screening for prostate cancer Screening for hypercholesterolemia Acute adjustment disorder with mixed anxiety and depressed mood Reactive airways dysfunction syndrome Allergic rhinitis COPD (chronic obstructive pulmonary disease) Unspecified asthma, uncomplicated Essential hypertension Surgical History History of colonoscopy History of surgery on arm History of hernia surgery Social History Housing: Other Housing Other:: Trailer Home Alcohol intake: never Patient Tobacco Use Status: Never used Tobacco e-Cigarette/Vaping Use: Never Used Second Hand Smoke Exposure: No service: No Current occupational status: retired and disabled Cognitive needs: No Hearing needs: No Vision needs: Yes (Glasses) Review of Systems Const All systems reviewed & are unremarkable except as noted in HPI and below Eyes Reports no additional complaints ENT Reports nasal congestion (daily ) and Reports nasal discharge (intermittent) Card Denies chest pain, Denies irregular heart rhythm and Denies leg edema Resp Reports as per HPI (He has much more pronounced due shortness of breath and nasal congestion ) GI Reports no additional complaints Reports no additional complaints Musc Reports no additional complaints Skin/Breast Reports system reviewed and no additional complaints, except as documented Neuro Reports no additional complaints Psych Reports anxiety Physical Exam Vital Signs: Last Vital Signs Pulse 72 09/08/23 13:53 BP 122/70 09/08/23 13:53 Pulse Ox 95 09/08/23 13:53 Oxygen Delivery Method Room Air 09/08/23 13:53 BMI result Body Mass Index 27.6 Const General: comfortable, no acute distress, alert, awake and anxious Orientation/consciousness: patient oriented x3 HEENT Head: Yes normal to inspection General nose exam: No nasal polyps present, No nasal discharge present and Other nasal findings present (Mild bilateral nasal congestion) Face and sinus: Yes sinuses nontender Mouth: oropharynx normal Throat: Yes posterior oropharynx normal Eyes General: appearance normal, both eyes and all related structures Neck Neck: Yes normal visual inspection, Yes no lymphadenopathy, Yes trachea midline and Yes no JVD Thyroid: Thyroid normal Chest Chest palpation & inspection: normal inspection of the chest, normal palpation of entire chest wall and no tenderness Resp Other: PERCUSSION NOTE RESONANT, BREATH SOUNDS ARE EQUAL ON BOTH SIDES WITH PROLONGED EXPIRATORY PHASE. No cough during the examination and lungs are very clear. Cardio Palpation: normal PMI Rate: regular rate Rhythm: regular rhythm Heart sounds: no gallops and no murmurs GI Palpation (GI): Soft to palpation, nontender, No hepatosplenomegaly present and no masses Auscultation: normal bowel sounds Back/Spine/Pelvis Thoracic/Lumbar Spine: thoracic and lumbar spine normal to inspection Skin General skin exam: no rashes or lesions noted Neuro General: patient oriented x3 and no focal motor deficits Cranial nerves: Yes CN's II-XII intact bilaterally Extrem General: Yes normal to inspection, Yes no clubbing, cyanosis or edema and Yes no calf tenderness Psych Speech and movement: Normal speech and movement present Affect: Anxious affect present Quality Reporting (2019) Adult ([facility] 138/06/04/68) Body Mass Index: 27.6 Assessment & Plan Assessment & Plan (1) Asthma-COPD overlap syndrome: Comment: PATIENT HAS HAD CHRONIC SEVERE PERSISTENT ASTHMA/COPD. WITH FREQUENT EXACERBATION, AND STEROID DEPENDENCE. NOW THAT HE HAS BEEN ON DUPIXENT THERAPY, HE IS DOING MUCH BETTER . HE STILL NEEDS LOT OF SUPPORT, AND CONTINUED INTENSIVE TREATMENT. I TALKED TO HIM AND EXPLAINED THAT IT IS TIME TO SEE IF WE CAN CUT DOWN ON THE USE OF PREDNISONE. Code(s): J44.9 - Chronic obstructive pulmonary disease, unspecified Category: Medical Plan: WIXELA 500-51 INHALATION B.I.D. INCRUSE ELLIPTA 1 INHALATION DAILY ALBUTEROL SOLUTION 2.5 MG IN THE NEBULIZER Q 4-6 HOURS P.R.N.. VENTOLIN HFA 2 PUFFS Q 4-6 HOURS P.R.N. WHEN OUTDOORS PREDNISONE 5 MG, REDUCED TO Q ALTERNATE DAYS. ALSO CONTINUE MONTELUKAST 10 MG DAILY (2) Allergic rhinitis: Comment: HAS HAD CHRONIC ALLERGIC RHINITIS WITH POSTNASAL DISCHARGE AND CONTRIBUTING TO HIS COUGH WELL REACTIVE AIRWAYS. IT IS CONTROLLED WELL EXPECTED . Code(s): J30.9 - Allergic rhinitis, unspecified Category: Medical Plan: MONTELUKAST 10 MG DAILY (3) Anxiety and depression: Comment: This is chronic problem, Currently he does not use any anxiolytic meds. since his respiratory symptoms are under better control his anxiety level has been much less. The patient claims that he is doing well and he does not need to see any psychologist, also does not need anxiolytic agents at this time. Code(s): F41.9 - Anxiety disorder, unspecified; F32.A - Depression, unspecified Category: Medical Plan: DISCUSSED WITH THE PATIENT ABOUT HIS CONDITION, REASSURED. HE FEELS HAPPY THAT WE HAVE BEEN ABLE TO CONTROL HIS SYMPTOMS WITH THE USE OF BIOLOGIC TREATMENT. Medications: Changed From prednisone 5 mg PO DAILY 30 tabs 3RF To prednisone 5 mg PO Q OTHER DAY 30 days 15 tabs 4RF Refilled albuterol sulfate 90 mcg/actuation (Ventolin HFA) 2 puffs inhalation Q4-6H PRN 18 ea 5RF for wheezing Coding Level of Care Code Est Pt Level 4 (06292) Diagnoses Asthma-COPD overlap syndrome J44.9 Allergic rhinitis J30.9 Anxiety and depression F41.9; F32.A
[2023-09-08 14:15] VITALS: BMI 27.6
== END 2023-09-08 14:16 | disposition home or self-care (01) ==
PROVIDERS: PCP Internal Medicine; Visit Provider Internal Medicine
DX: J44.9 Chronic obstructive pulmonary disease, unspecified (principal); J30.9 Allergic rhinitis, unspecified; F41.9 Anxiety disorder, unspecified; F32.A Depression, unspecified
CPT/HCPCS: 99214

== ENCOUNTER → 2023-09-08 13:43 | Outpatient (BNVA) | payer OTHER, SELFPAY | PROVIDERS: PCP Internal Medicine; Visit Provider Internal Medicine | DX: J44.9 Chronic obstructive pulmonary disease, unspecified (principal); J30.9 Allergic rhinitis, unspecified; F41.9 Anxiety disorder, unspecified; F32.A Depression, unspecified | CPT/HCPCS: 99212 ==

== ENCOUNTER 2023-11-04 13:50 | Outpatient (AMB) | payer OTHER, SELFPAY ==
--- NOTE | 2023-11-04 13:55 | MHC.PC.OV ---
Vital Signs 11/04/23 13:56 Height 5 ft 6 in Weight 175 lb BMI 28.2 BP 110/68 Blood Pressure Location Rt brachial Position Sitting Pulse 76 Pulse Source Pulse Oximeter Pulse Oximetry (%) 97 Oxygen Delivery Method Room Air Intake Visit Reasons: 3mth f/u Intake Note: Patient is here to follow up on Asthma, COPD, HTN, Polyarthralgia. Inspector Wire Products Required: Yes Inspector Wire Products Language: Sewing Pattern Layout Technician Name: Juana [phone]) Information Interpreted: non-clinical & clinical Fine Artist: Present Accompanied by: Spouse Allergies haloperidol [From HALDOL] Adverse Reaction (Severe, Verified 11/04/23 14:40) AKATHESIA cimetidine [From Tagamet] Adverse Reaction (Intermediate, Verified 11/04/23 14:40) GYNECOMASTIA bupropion [BUPROPION] Adverse Reaction (Unknown, Verified 11/04/23 14:40) UNKNOWN Medication List - Last Reconciled 11/04/23 by Eris Grajeda MD acetaminophen (Tylenol Extra Strength) 1,000 mg PO Q6H PRN albuterol sulfate 2.5 mg (3 mL) PO Q4-6H PRN albuterol sulfate 90 mcg/actuation (Ventolin HFA) 2 puffs inhalation Q4-6H PRN atorvastatin 10 mg PO BEDTIME blood pressure monitor As directed cholecalciferol (vitamin D3) 25 mcg PO DAILY dupilumab (Dupixent) 300 mg (2 mL) subcut Q2W famotidine 40 mg PO DAILY fluticasone propion-salmeterol 500-50 mcg/dose (Wixela Inhub) 1 ea PO DAILY Incruse Ellipta 62.5 mcg/actuation (umeclidinium) 1 inh PO DAILY NS losartan 100 mg PO DAILY magnesium oxide 500 mg PO DAILY mecobalamin (vitamin B12) 1,000 mcg PO DAILY miscellaneous medical supply 1 ea miscellaneous DAILY miscellaneous medical supply 1 ea miscellaneous DAILY montelukast 10 mg PO BEDTIME prednisone 5 mg PO Q OTHER DAY 30 days Ventolin HFA 90 mcg/actuation (albuterol sulfate) 2 puffs PO Q4H PRN NS Tobacco use date assessed: 11/04/23 Fall risk assessment: No Falls in past year Last assessed Fall Risk: 11/04/23 Dental Screening Dental Screen Date: 04/21/23 HPI 3mth f/u HPI Details 73-year-old male presents to the office to discuss his chronic medical conditions. Patient reports he is at baseline state of health. He does have some neck pains and back pains. These get resolved with Tylenol. Due to his shortness of breath, he does not venture much out of the house. Able to function and do activities of daily living. Continues to drive and do the groceries. Does not drive at night. Not exercising. Requests a refill on a few medications. [facility] Medical History Asthma-COPD overlap syndrome COPD exacerbation Anxiety and depression Acute costochondritis Vitamin deficiency Vitamin deficiency Screening for prostate cancer Screening for hypercholesterolemia Acute adjustment disorder with mixed anxiety and depressed mood Reactive airways dysfunction syndrome Allergic rhinitis COPD (chronic obstructive pulmonary disease) Unspecified asthma, uncomplicated Essential hypertension Surgical History History of colonoscopy History of surgery on arm History of hernia surgery Social History Housing: Other Housing Other:: Trailer Home Alcohol intake: never Patient Tobacco Use Status: Never used Tobacco e-Cigarette/Vaping Use: Never Used Second Hand Smoke Exposure: No service: No Current occupational status: retired and disabled Cognitive needs: No Hearing needs: No Vision needs: Yes (Glasses) Questionnaire Thrive Questionnaire Date Thrive assessed: 04/21/23 ANNABELLA-7 AMB Questionnaire ANNABELLA-7 Date ANNABELLA - 7 assessed: 04/21/23 Source: Developed by Drs. Raphael Basurto, Nereida Andrea, Shekhar Flowers and colleagues, with an educational jon from [employer]. Physical exam (Primary Care) Vital Signs: Last Vital Signs Pulse 76 11/04/23 13:56 BP 110/68 11/04/23 13:56 Pulse Ox 97 11/04/23 13:56 Oxygen Delivery Method Room Air 11/04/23 13:56 BMI result Body Mass Index 28.2 Tobacco/Smoking Status: Tobacco use Status Tobacco use date assessed 11/04/23 11/04/23 13:57 Patient Tobacco Use Status Never used Tobacco 11/04/23 13:57 e-Cigarette/Vaping Use Never Used 11/04/23 13:57 Thrive Assessment: Date of Thrive Assessment Date Thrive assessed 04/21/23 11/04/23 13:57 Const General: cooperative and healthy appearing Nutritional Appearance: well nourished Orientation/consciousness: patient oriented x3 Limitations: no limitations HENMT Head: Yes normal to inspection Eyes General: appearance normal, both eyes and all related structures Neck Neck: Yes normal visual inspection Chest Chest palpation & inspection: normal palpation of entire chest wall Resp Effort & Inspection: normal respiratory effort Neuro General: patient oriented x3 Assessment and Plan Assessment & Plan (1) Hyperlipidemia: Code(s): E78.5 - Hyperlipidemia, unspecified Plan: Blood work ordered. (2) Asthma-COPD overlap syndrome: Comment: PATIENT HAS HAD CHRONIC SEVERE PERSISTENT ASTHMA/COPD. WITH FREQUENT EXACERBATION, AND STEROID DEPENDENCE. NOW THAT HE HAS BEEN ON DUPIXENT THERAPY, HE IS DOING MUCH BETTER . HE STILL NEEDS LOT OF SUPPORT, AND CONTINUED INTENSIVE TREATMENT. I TALKED TO HIM AND EXPLAINED THAT IT IS TIME TO SEE IF WE CAN CUT DOWN ON THE USE OF PREDNISONE. Code(s): J44.9 - Chronic obstructive pulmonary disease, unspecified Plan: Continue current medications. Orders: Orders Basic Metabolic Panel Today E78.5 - Hyperlipidemia, unspecified, J44.9 - Chronic obstructive pulmonary disease, unspecified Lipid Panel Today E78.5 - Hyperlipidemia, unspecified, J44.9 - Chronic obstructive pulmonary disease, unspecified Complete Blood Count no Diff Today E78.5 - Hyperlipidemia, unspecified, J44.9 - Chronic obstructive pulmonary disease, unspecified Liver Panel Today E78.5 - Hyperlipidemia, unspecified, J44.9 - Chronic obstructive pulmonary disease, unspecified Thyroid Stimulating Hormone Today E78.5 - Hyperlipidemia, unspecified, J44.9 - Chronic obstructive pulmonary disease, unspecified UA and rflx microscopic Today E78.5 - Hyperlipidemia, unspecified, J44.9 - Chronic obstructive pulmonary disease, unspecified Medications: Refilled losartan 100 mg PO DAILY 90 tabs 1RF Coding Level of Care Code Est Pt Level 4 (84766) Complex EM visit Add On G2211 Diagnoses Hyperlipidemia E78.5 Asthma-COPD overlap syndrome J44.9
[2023-11-04 13:56] VITALS: BP 110/68; PULSE 76; O2SAT 97; BMI 28.2
== END 2023-11-04 14:35 | disposition home or self-care (01) ==
PROVIDERS: PCP Internal Medicine; Visit Provider Internal Medicine
DX: E78.5 Hyperlipidemia, unspecified (principal); J44.9 Chronic obstructive pulmonary disease, unspecified
CPT/HCPCS: 99214; G2211

== ENCOUNTER 2023-11-05 06:36 | Outpatient (REF) | payer OTHER, SELFPAY ==
[2023-11-05 06:53] LABS: Hematocrit 46.7 % (42.0-52.0); Hemoglobin 15.6 g/dl (14.0-18.0); Mean Corpuscular HGB Conc 33.4 g/dl (31.0-36.0); Mean Corpuscular Hemoglobin 29.8 pg (27.0-33.0); Mean Corpuscular Volume 89.1 fL (80.0-98.0); Mean Platelet Volume 9.2 fL (9.4-12.4); Platelet Count 211 X10*3/uL (160-400); Red Blood Count 5.24 X10*6/uL (4.60-5.80); Red Cell Distribution Width 12.6 % (11.0-16.0); White Blood Count 5.4 X10*3/uL (4.8-10.8)
[2023-11-05 07:30] LABS: Alanine Aminotransferase 30 U/L (0-40); Albumin Level 4.5 g/dL (3.5-5.0); Alkaline Phosphatase 62 U/L (39-117); Anion Gap 14 (12-20); Aspartate Amino Transferase 25 U/L (5-37); Bilirubin Direct 0.2 mg/dL (0.0-0.5); Bilirubin Total 0.7 mg/dL (0.0-1.0); Blood Urea Nitrogen 15 mg/dL (9-16); Calcium 9.3 mg/dL (8.4-10.2); Carbon Dioxide 28 mmol/L (22-29); Chloride 106 mmol/L (96-108); Cholesterol 175 mg/dL (<200); Estimated Glomerular Filt Rate > 60; Glucose Random 107 mg/dL (60-115); HDL Cholesterol 38 mg/dL (>40); LDL Cholesterol Calculated 114 mg/dL (<100); Sodium 144 mmol/L (135-145); Total Protein 7.1 g/dL (6.5-8.0); Triglycerides 116 mg/dL (<150)
[2023-11-05 07:45] LABS: Thyroid Stimulating Hormone 1.77 uIU/mL (0.32-4.0)
[2023-11-05 08:36] LABS: Appearance Urine Clear; Color Urine Yellow; Glucose Urine UA Negative (Negative); Leukocyte Esterase Urine Negative (Negative); Nitrite Urine Negative (Negative); PH 5.5 (5.0-9.0); Urine Blood Negative (Negative); Urine Ketones Negative (Negative); Urine Protein Negative (Neg-Trace)
== END 2023-11-05 06:37 | disposition home or self-care (01) ==
LOC: HO.LAB 06:36
PROVIDERS: PCP Internal Medicine; Visit Provider Internal Medicine
DX: E78.5 Hyperlipidemia, unspecified (principal); J44.9 Chronic obstructive pulmonary disease, unspecified
CPT/HCPCS: 36415; 80048; 80061; 80076; 81003; 84443; 85027

== ENCOUNTER 2024-01-11 13:31 | Outpatient (AMB) | payer OTHER, SELFPAY ==
--- NOTE | 2024-01-11 13:56 | MHC.OFFVIS ---
Vital Signs 01/11/24 13:57 Height 5 ft 6 in Weight 171 lb 15.369 oz BMI 27.8 BP 114/70 Blood Pressure Location Lt brachial Position Sitting Pulse 66 Pulse Source Pulse Oximeter Pulse Oximetry (%) 94 Oxygen Delivery Method Room Air Intake Visit Reasons: COPD Intake Note: pt is here for follow up and states his breathing is about the same Process Engineering Technician Required: No Allergies haloperidol [From HALDOL] Adverse Reaction (Severe, Verified 01/11/24 14:03) AKATHESIA cimetidine [From Tagamet] Adverse Reaction (Intermediate, Verified 01/11/24 14:03) GYNECOMASTIA bupropion [BUPROPION] Adverse Reaction (Unknown, Verified 01/11/24 14:03) UNKNOWN Medication List - Last Reconciled 01/11/24 by Ivan Rey MD acetaminophen (Tylenol Extra Strength) 1,000 mg PO Q6H PRN albuterol sulfate 2.5 mg (3 mL) PO Q4-6H PRN albuterol sulfate 90 mcg/actuation (Ventolin HFA) 2 puffs inhalation Q4-6H PRN atorvastatin 10 mg PO BEDTIME blood pressure monitor As directed cholecalciferol (vitamin D3) 25 mcg PO DAILY dupilumab (Dupixent) 300 mg (2 mL) subcut Q2W famotidine 40 mg PO DAILY fluticasone propion-salmeterol 500-50 mcg/dose (Wixela Inhub) 1 ea PO DAILY Incruse Ellipta 62.5 mcg/actuation (umeclidinium) 1 inh PO DAILY NS losartan 100 mg PO DAILY magnesium oxide 500 mg PO DAILY mecobalamin (vitamin B12) 1,000 mcg PO DAILY miscellaneous medical supply 1 ea miscellaneous DAILY miscellaneous medical supply 1 ea miscellaneous DAILY montelukast 10 mg PO BEDTIME prednisone 5 mg PO Q OTHER DAY 30 days Ventolin HFA 90 mcg/actuation (albuterol sulfate) 2 puffs PO Q4H PRN NS Do you need a note to return to daycare/school/sports/work: No HPI HPI COPD: Details: THIS 73 YEARS OLD GENTLEMAN IS HERE FOR FOLLOW-UP AFTER 4 MONTHS. HE IS BEING TREATED FOR CHRONIC ALLERGIC RHINITIS/BRONCHIAL ASTHMA, WITH HYPER EOSINOPHILIA SYNDROME. SINCE HE IS ON BIOLOGIC TREATMENT WITH DUPIXENT, HE HAS DONE VERY WELL. HE IS GETTING INJECTION TWICE A MONTH. STILL HAS INTERMITTENT RUNNY NOSE SOME COUGH AND WHEEZING. HE IS USING VENTOLIN OR ALBUTEROL IN THE NEBULIZER ABOUT 2 TO 3 TIMES A DAY. IT IS LESS THAN BEFORE. HIS ANXIETY LEVEL IS ALSO MUCH LESS THAN BEFORE. [facility] Medical History Asthma-COPD overlap syndrome COPD exacerbation Anxiety and depression Acute costochondritis Vitamin deficiency Vitamin deficiency Screening for prostate cancer Screening for hypercholesterolemia Acute adjustment disorder with mixed anxiety and depressed mood Reactive airways dysfunction syndrome Allergic rhinitis COPD (chronic obstructive pulmonary disease) Unspecified asthma, uncomplicated Essential hypertension Surgical History History of colonoscopy History of surgery on arm History of hernia surgery Social History Housing: Other Housing Other:: Trailer Home Alcohol intake: never Patient Tobacco Use Status: Never used Tobacco e-Cigarette/Vaping Use: Never Used Second Hand Smoke Exposure: No service: No Current occupational status: retired and disabled Cognitive needs: No Hearing needs: No Vision needs: Yes (Glasses) Review of Systems Const All systems reviewed & are unremarkable except as noted in HPI and below Eyes Reports no additional complaints ENT Reports nasal congestion (daily ) and Reports nasal discharge (intermittent) Card Denies chest pain, Denies irregular heart rhythm and Denies leg edema Resp Reports as per HPI (He has much more pronounced due shortness of breath and nasal congestion ) GI Reports no additional complaints Reports no additional complaints Musc Reports no additional complaints Skin/Breast Reports system reviewed and no additional complaints, except as documented Neuro Reports no additional complaints Psych Reports anxiety Physical Exam Vital Signs: Last Vital Signs Pulse 66 01/11/24 13:57 BP 114/70 01/11/24 13:57 Pulse Ox 94 01/11/24 13:57 Oxygen Delivery Method Room Air 01/11/24 13:57 BMI result Body Mass Index 27.8 Const General: comfortable, no acute distress, alert, awake and anxious Orientation/consciousness: patient oriented x3 HEENT Head: Yes normal to inspection General nose exam: No nasal polyps present, No nasal discharge present and Other nasal findings present (Mild bilateral nasal congestion) Face and sinus: Yes sinuses nontender Mouth: oropharynx normal Throat: Yes posterior oropharynx normal Eyes General: appearance normal, both eyes and all related structures Neck Neck: Yes normal visual inspection, Yes no lymphadenopathy, Yes trachea midline and Yes no JVD Thyroid: Thyroid normal Chest Chest palpation & inspection: normal inspection of the chest, normal palpation of entire chest wall and no tenderness Resp Other: PERCUSSION NOTE RESONANT, BREATH SOUNDS ARE EQUAL ON BOTH SIDES WITH PROLONGED EXPIRATORY PHASE. Lungs are very clear. No wheezes or rhonchi are heard. Cardio Palpation: normal PMI Rate: regular rate Rhythm: regular rhythm Heart sounds: no gallops and no murmurs GI Palpation (GI): Soft to palpation, nontender, No hepatosplenomegaly present and no masses Auscultation: normal bowel sounds Back/Spine/Pelvis Thoracic/Lumbar Spine: thoracic and lumbar spine normal to inspection Skin General skin exam: no rashes or lesions noted Neuro General: patient oriented x3 and no focal motor deficits Cranial nerves: Yes CN's II-XII intact bilaterally Extrem General: Yes normal to inspection, Yes no clubbing, cyanosis or edema and Yes no calf tenderness Psych Speech and movement: Normal speech and movement present Affect: Anxious affect present Assessment & Plan Assessment & Plan (1) Asthma-COPD overlap syndrome: Comment: PATIENT HAS HAD CHRONIC SEVERE PERSISTENT ASTHMA/COPD. WITH FREQUENT EXACERBATION, AND STEROID DEPENDENCE. NOW THAT HE HAS BEEN ON DUPIXENT THERAPY, HE IS DOING MUCH BETTER . HE STILL NEEDS LOT OF SUPPORT, AND CONTINUED INTENSIVE TREATMENT. Code(s): J44.9 - Chronic obstructive pulmonary disease, unspecified Category: Medical Plan: Patient is reassured. Advised to continue the same medical regimen which includes : Incruse Ellipta 1 inhalation daily Wixela 500-50 1 inhalation b.i.d. Montelukast 10 mg daily Ventolin HFA 2 puffs Q 4-6 hours only p.r.n. Patient is on prednisone 5 mg on alternate days, (2) Anxiety and depression: Comment: This is chronic problem, Currently he does not use any anxiolytic meds. since his respiratory symptoms are under better control his anxiety level has been much less. The patient claims that he is doing well and he does not need to see any psychologist, also does not need anxiolytic agents at this time. Code(s): F41.9 - Anxiety disorder, unspecified; F32.A - Depression, unspecified Category: Medical Plan: Patient is reassured. No need of anxiolytic meds (3) Allergic rhinitis: Comment: HAS HAD CHRONIC ALLERGIC RHINITIS WITH POSTNASAL DISCHARGE AND CONTRIBUTING TO HIS COUGH WELL REACTIVE AIRWAYS. IT IS CONTROLLED WELL EXPECTED . Code(s): J30.9 - Allergic rhinitis, unspecified Category: Medical Plan: Continue montelukast 10 mg daily. Continue the regimen for COPD Coding Level of Care Code Est Pt Level 4 (67836) Diagnoses Asthma-COPD overlap syndrome J44.9 Anxiety and depression F41.9; F32.A Allergic rhinitis J30.9
[2024-01-11 13:57] VITALS: BP 114/70; PULSE 66; O2SAT 94; BMI 27.8
== END 2024-01-11 14:09 | disposition home or self-care (01) ==
PROVIDERS: PCP Internal Medicine; Visit Provider Internal Medicine
DX: J44.9 Chronic obstructive pulmonary disease, unspecified (principal); F41.9 Anxiety disorder, unspecified; F32.A Depression, unspecified; J30.9 Allergic rhinitis, unspecified
CPT/HCPCS: 99214

== ENCOUNTER → 2024-01-11 13:31 | Outpatient (BNVA) | payer OTHER, SELFPAY | PROVIDERS: PCP Internal Medicine; Visit Provider Internal Medicine | DX: J44.9 Chronic obstructive pulmonary disease, unspecified (principal); J45.51 Severe persistent asthma with (acute) exacerbation; J30.9 Allergic rhinitis, unspecified; D72.119 Hypereosinophilic syndrome [HES], unspecified; F41.9 Anxiety disorder, unspecified; F32.A Depression, unspecified | CPT/HCPCS: 99212 ==

== ENCOUNTER 2024-05-10 13:28 | Outpatient (AMB) | payer OTHER, SELFPAY ==
--- NOTE | 2024-05-10 13:46 | MHC.OFFVIS ---
Vital Signs 05/10/24 13:47 Height 5 ft 6 in Weight 173 lb 1.006 oz BMI 27.9 BP 130/82 Blood Pressure Location Lt brachial Position Sitting Pulse 67 Pulse Source Pulse Oximeter Pulse Oximetry (%) 95 Oxygen Delivery Method Room Air Intake Visit Reasons: COPD Intake Note: pt is here for follow up and states he is doing well Building Service Worker Required: No Allergies haloperidol [From HALDOL] Adverse Reaction (Severe, Verified 05/10/24 13:49) AKATHESIA cimetidine [From Tagamet] Adverse Reaction (Intermediate, Verified 05/10/24 13:49) GYNECOMASTIA bupropion [BUPROPION] Adverse Reaction (Unknown, Verified 05/10/24 13:49) UNKNOWN Medication List - Last Reconciled 05/10/24 by Ivan Rey MD acetaminophen (Tylenol Extra Strength) 1,000 mg PO Q6H PRN albuterol sulfate 2.5 mg (3 mL) PO Q4-6H PRN albuterol sulfate 90 mcg/actuation (Ventolin HFA) 2 puffs inhalation Q4-6H PRN atorvastatin 10 mg PO BEDTIME blood pressure monitor As directed cholecalciferol (vitamin D3) 25 mcg PO DAILY dupilumab (Dupixent) 300 mg (2 mL) subcut Q2W famotidine 40 mg PO DAILY fluticasone propion-salmeterol 500-50 mcg/dose (Wixela Inhub) 1 ea PO DAILY Incruse Ellipta 62.5 mcg/actuation (umeclidinium) 1 inh PO DAILY NS losartan 100 mg PO DAILY magnesium oxide 500 mg PO DAILY mecobalamin (vitamin B12) 1,000 mcg PO DAILY miscellaneous medical supply 1 ea miscellaneous DAILY miscellaneous medical supply 1 ea miscellaneous DAILY montelukast 10 mg PO BEDTIME PRN prednisone 5 mg PO Q OTHER DAY Ventolin HFA 90 mcg/actuation (albuterol sulfate) 2 puffs PO Q4H PRN NS Do you need a note to return to daycare/school/sports/work: No HPI HPI COPD: Details: 73 years old gentleman, is here for his follow-up after 4 months. He is being treated for chronic allergic rhinitis/asthma COPD. Since he has been started on biologic treatment he is doing much better, He has only mild intermittent nasal congestion and cough. He hardly gets any attacks of wheezing. Especially today he is very happy and not anxious at all. [facility] Medical History Asthma-COPD overlap syndrome COPD exacerbation Anxiety and depression Acute costochondritis Vitamin deficiency Vitamin deficiency Screening for prostate cancer Screening for hypercholesterolemia Acute adjustment disorder with mixed anxiety and depressed mood Reactive airways dysfunction syndrome Allergic rhinitis COPD (chronic obstructive pulmonary disease) Unspecified asthma, uncomplicated Essential hypertension Surgical History History of colonoscopy History of surgery on arm History of hernia surgery Social History Housing: Other Housing Other:: Trailer Home Alcohol intake: never Patient Tobacco Use Status: Never used Tobacco e-Cigarette/Vaping Use: Never Used Second Hand Smoke Exposure: No service: No Current occupational status: retired and disabled Cognitive needs: No Hearing needs: No Vision needs: Yes (Glasses) Review of Systems Const All systems reviewed & are unremarkable except as noted in HPI and below Eyes Reports no additional complaints ENT Reports nasal congestion (daily ) and Reports nasal discharge (intermittent) Card Denies chest pain, Denies irregular heart rhythm and Denies leg edema Resp Reports as per HPI (He has much more pronounced due shortness of breath and nasal congestion ) GI Reports no additional complaints Reports no additional complaints Musc Reports no additional complaints Skin/Breast Reports system reviewed and no additional complaints, except as documented Neuro Reports no additional complaints Psych Reports anxiety Physical Exam Vital Signs: Last Vital Signs Pulse 67 05/10/24 13:47 BP 130/82 05/10/24 13:47 Pulse Ox 95 05/10/24 13:47 Oxygen Delivery Method Room Air 05/10/24 13:47 BMI result Body Mass Index 27.9 Const General: comfortable, no acute distress, alert, awake and anxious Orientation/consciousness: patient oriented x3 HEENT Head: Yes normal to inspection General nose exam: No nasal polyps present, No nasal discharge present and Other nasal findings present (Mild bilateral nasal congestion) Face and sinus: Yes sinuses nontender Mouth: oropharynx normal Throat: Yes posterior oropharynx normal Eyes General: appearance normal, both eyes and all related structures Neck Neck: Yes normal visual inspection, Yes no lymphadenopathy, Yes trachea midline and Yes no JVD Thyroid: Thyroid normal Chest Chest palpation & inspection: normal inspection of the chest, normal palpation of entire chest wall and no tenderness Resp Other: PERCUSSION NOTE RESONANT, BREATH SOUNDS ARE EQUAL ON BOTH SIDES WITH PROLONGED EXPIRATORY PHASE. Lungs are very clear. No wheezes or rhonchi are heard. Cardio Palpation: normal PMI Rate: regular rate Rhythm: regular rhythm Heart sounds: no gallops and no murmurs GI Palpation (GI): Soft to palpation, nontender, No hepatosplenomegaly present and no masses Auscultation: normal bowel sounds Back/Spine/Pelvis Thoracic/Lumbar Spine: thoracic and lumbar spine normal to inspection Skin General skin exam: no rashes or lesions noted Neuro General: patient oriented x3 and no focal motor deficits Cranial nerves: Yes CN's II-XII intact bilaterally Extrem General: Yes normal to inspection, Yes no clubbing, cyanosis or edema and Yes no calf tenderness Psych Speech and movement: Normal speech and movement present Affect: Anxious affect present Assessment & Plan Assessment & Plan (1) Asthma-COPD overlap syndrome: Comment: PATIENT HAS HAD CHRONIC SEVERE PERSISTENT ASTHMA/COPD. WITH FREQUENT EXACERBATION, AND STEROID DEPENDENCE. NOW THAT HE HAS BEEN ON DUPIXENT THERAPY, HE IS DOING MUCH BETTER . CURRENTLY HIS SYMPTOMS ARE VERY MINIMAL AND HE IS VERY HAPPY WITH HIS CONDITION. HE STILL NEEDS LOT OF SUPPORT, AND CONTINUED INTENSIVE TREATMENT. Code(s): J44.9 - Chronic obstructive pulmonary disease, unspecified Category: Medical Plan: CONTINUE ALL THE PRESENT MEDS. CONTINUE DUPIXENT INJECTION Q.2 WEEKS. (2) Allergic rhinitis: Comment: HAS HAD CHRONIC ALLERGIC RHINITIS WITH POSTNASAL DISCHARGE AND CONTRIBUTING TO HIS COUGH WELL REACTIVE AIRWAYS. IT IS CONTROLLED WELL EXPECTED . Code(s): J30.9 - Allergic rhinitis, unspecified Category: Medical Plan: CONTINUE THE DUPIXENT INJECTION. CONTINUE MONTELUKAST 10 MG DAILY AND FLONASE NASAL SPRAY 1 SPRAY EACH NOSTRIL B.I.D. NEEDED (3) Anxiety and depression: Comment: This is chronic problem, Currently he does not use any anxiolytic meds. since his respiratory symptoms are under better control his anxiety level has been much less. The patient claims that he is doing well and he does not need to see any psychologist, also does not need anxiolytic agents at this time. Code(s): F41.9 - Anxiety disorder, unspecified; F32.A - Depression, unspecified Category: Medical Plan: HIS ANXIETY LEVEL IS DEFINITELY MUCH LESS BECAUSE OF CONTROL OF THE RESPIRATORY SYMPTOMS. Medications: Changed From montelukast 10 mg PO BEDTIME 90 tabs 3RF J30.9 - Allergic rhinitis, unspecified, J44.9 - Chronic obstructive pulmonary disease, unspecified To montelukast 10 mg PO BEDTIME PRN J30.9 - Allergic rhinitis, unspecified, J44.9 - Chronic obstructive pulmonary disease, unspecified Coding Level of Care Code Est Pt Level 3 (10188) Diagnoses Asthma-COPD overlap syndrome J44.9 Allergic rhinitis J30.9 Anxiety and depression F41.9; F32.A
[2024-05-10 13:47] VITALS: BP 130/82; PULSE 67; O2SAT 95; BMI 27.9
--- OUTSIDE RECORDS SUMMARY | 2024-05-10 14:29 | XMS_ITS | Data Portability ---
Author Organization [employer] Address [address] [place] [phone] Care Team Providers Care Equipment Tester Name Role Phone [facility] Referring Provider [phone] Assessment No assessment recorded. Plan of Treatment Reminders Order Date Submit Date Provider Last Modified By Organization Details Last Modified Time Details Appointments None recorded. Lab None recorded. Referral None recorded. Procedures None recorded. Surgeries None recorded. Imaging None recorded. Medication Orders prednisone 20 mg tablet 2021 022 [facility]armacy #[id number], [address] [facility], [place], [address], 17:40:50 Patient TargetsNo targets recorded. Patient InstructionsNo instructions recorded. Reason for Referral None Reported. Medical Equipment None Reported. Medications Name Sig Start Date Stop Date Status Note LastModified by Organization Details LastModified Time losartan 50 mg tablet TAKE 1 TABLET BY MOUTH EVERY DAY active Not Available Not Available No t Available prednisone 10 mg tablet TAKE 1 TABLET BY MOUTH EVERY DAY IN THE MORNING active Not Available Not Available No t Available albuterol sulfate 2.5 mg/3 mL (0.083 %) solution for nebulization USE 1 VIAL VIA NEBULIZER EVERY 4 TO 6 HOURS NEEDED FOR FOR WHEEZING FOR 30 DAYS active Not Available Not Available No t Available trazodone 50 mg tablet TAKE 1 TABLET BY MOUTH AT BEDTIME NEEDED FOR SLEEP active Not Available Not Available No t Available atorvastatin 10 mg tablet TAKE 1 TABLET BY MOUTH EVERYDAY AT BEDTIME active Not Available Not Available N ot Available famotidine 40 mg tablet TAKE 1 TABLET BY MOUTH EVERY DAY active Not Available Not Available No t Available prednisone 20 mg tablet TAKE 2 TABLETS BY MOUTH EVERY DAY FOR 5 DAYS active Not Available Not Available N ot Available prednisone 5 mg tablet TAKE 1 TABLET BY MOUTH EVERY DAY FOR 30 DAYS active Not Available Not Available No t Available naproxen 250 mg tablet TAKE 1 TABLET BY MOUTH TWICE A DAY NEEDED FOR PAIN active Not Available Not Available No t Available tamsulosin 0.4 mg capsule TAKE 1 CAPSULE BY MOUTH EVERYDAY AT BEDTIME active Not Available Not Available N ot Available benzonatate 100 mg capsule TAKE 1 CAPSULE BY MOUTH TWICE A DAY NEEDED FOR COUGH active Not Available Not Available No t Available losartan 25 mg tablet TAKE 1 TABLET BY MOUTH EVERY DAY IN THE EVENING IN ADDITION TO HIS 50 MG active Not Available Not Available No t Available montelukast 10 mg tablet TAKE 1 TABLET AT BEDTIME active Not Available Not Available No t Available albuterol sulfate HFA 90 mcg/actuation aerosol inhaler INHALE 2 PUFFS BY MOUTH EVERY 4 TO 6 HOURS NEEDED FOR SHORTNESS OF BREATH OR WHEEZING active Not Available Not Available No t Available duloxetine 30 mg capsule,delay ed release TAKE 1 CAPSULE BY MOUTH EVERY DAY IN THE MORNING active Not Available Not Available No t Available cholecalcifer ol (vitamin D3) 25 mcg (1,000 unit) tablet TAKE 1 TABLET BY MOUTH EVERY DAY active Not Available Not Available No t Available diclofenac 1 % topical gel APPLY 2 G TOPICALLY 4X TO SINGLE ELBOW, WRIST OR HAND FOR HAND INCLUDES PALM/FINGE RS/BACK OF HAND active Not Available Not Available No t Available Incruse Ellipta 62.5 mcg/actuation powder for inhalation INHALE 1 PUFF BY MOUTH EVERY DAY active Not Available Not Available No t Available Wixela Inhub 500 mcg-50 mcg/dose powder for inhalation TAKE 1 PUFF BY MOUTH ONCE active Not Available Not Available N ot Available Vitals None Recorded Social History None recorded. Functional Status None recorded. Mental Status None recorded. Family History Nothing Reported. Medical History No medical history recorded. Past Encounters Encounter ID Performer Location Encounter Start Date Encounter Closed Date Diagnosis/Indication Diagnosis SNOMED-CT Code Diagnosis ICD10 Code Diagnosis Note [id number] Ismael Lowry MD [facility] [address] [place] [address] 05/31/2021 17:33:17 10/28/2021 12:50:05 Asthma [id number] J45.909 Health Concerns Section Related Observation LastModified by Organization Janey holder LastModified Time None Recorded Concern Status LastModified by Organization Details LastModified Time None Recorded Advance Directives Directive None Recorded Payers Encounter Date Sequence Insurance Name Policy Number Policy Taylor Covered Member ID Taylor Member ID Guarantor Name 05/31/2021 1 [facility] - DOS PRIOR TO 2022 - DUAL ELIGIBLE (MEDICARE REPLACEMENT/ADV ANTAGE - HMO) Robert Callahan [id number] Robert Callahan Notes Date Note Type Note Provider Name and Address Organization Details Recorded Time 05/31/2021 text/html Patient recently seen by anthony And diagnosed with asthma exacerbation. Per documentation the pt was supposed to receive a script for prednisone, However the patient never received this. I called the patient today where he reported ongoing wheezing but denied feeling worse than during his recent visit. Ordered prescription for prednisone that was documented as being ordered by prior [facility] Dr. Larios to patient's pharmacy. Ismael Lowry MD [address] [facility],[address], [place], [address], [facility] [place], JANETT 05/31/2021 17:42:47
== END 2024-05-10 14:10 | disposition home or self-care (01) ==
PROVIDERS: PCP Internal Medicine; Visit Provider Internal Medicine
DX: J44.9 Chronic obstructive pulmonary disease, unspecified (principal); J30.9 Allergic rhinitis, unspecified; F41.9 Anxiety disorder, unspecified; F32.A Depression, unspecified
CPT/HCPCS: 99213

== ENCOUNTER → 2024-05-10 13:28 | Outpatient (BNVA) | payer OTHER, SELFPAY | PROVIDERS: PCP Internal Medicine; Visit Provider Internal Medicine | DX: J44.9 Chronic obstructive pulmonary disease, unspecified (principal); J30.9 Allergic rhinitis, unspecified; F41.9 Anxiety disorder, unspecified; F32.A Depression, unspecified | CPT/HCPCS: 99212 ==

== ENCOUNTER → 2024-05-20 09:25 | Outpatient (BNVA) | payer OTHER, SELFPAY | PROVIDERS: PCP Internal Medicine; Visit Provider Physician Assistant Medical | DX: M25.50 Pain in unspecified joint (principal); J44.9 Chronic obstructive pulmonary disease, unspecified; R73.03 Prediabetes; F41.9 Anxiety disorder, unspecified; F32.A Depression, unspecified; R79.89 Other specified abnormal findings of blood chemistry; K21.9 Gastro-esophageal reflux disease without esophagitis; E78.5 Hyperlipidemia, unspecified; J68.3 Other acute and subacute respiratory conditions due to chemicals, gases, fumes and vapors; J30.9 Allergic rhinitis, unspecified; J43.2 Centrilobular emphysema; I10 Essential (primary) hypertension | CPT/HCPCS: 96127; 99212 ==

== ENCOUNTER 2024-05-21 08:10 | Outpatient (REF) | payer OTHER, SELFPAY ==
[2024-05-21 09:14] LABS: MANUAL DIFF FLAG NO
[2024-05-21 09:42] LABS: Basophils Percent Auto 0.5 % (0-2); Eosinophils Absolute Auto 0.1 X10*3/uL (0.0-0.4); Eosinophils Percent Auto 2.2 % (0-4); Hematocrit 45.6 % (42.0-52.0); Hemoglobin 15.3 g/dl (14.0-18.0); Imm Gran Abs Auto 0.02 X10*3/uL (0.00-0.03); Imm Gran Pct Auto 0.4 % (0.0-0.4); Lymphocytes Percent Auto 17.8 % (20-40); Mean Corpuscular HGB Conc 33.6 g/dl (31.0-36.0); Mean Corpuscular Hemoglobin 29.1 pg (27.0-33.0); Mean Corpuscular Volume 86.7 fL (80.0-98.0); Mean Platelet Volume 9.5 fL (9.4-12.4); Monocytes Absolute Auto 0.5 X10*3/uL (0.1-1.2); Monocytes Percent Auto 8.5 % (2-11); Neutrophils Absolute Auto 3.9 x10*3/uL (2.0-8.3); Neutrophils Percent Auto 70.6 % (45-73); Platelet Count 200 X10*3/uL (160-400); Red Blood Count 5.26 X10*6/uL (4.60-5.80); Red Cell Distribution Width 12.7 % (11.0-16.0); White Blood Count 5.6 X10*3/uL (4.8-10.8)
[2024-05-21 09:58] LABS: Estimated Average Glucose 126 mg/dL; Hemoglobin A1C 163.2155 umol/L; Total Hemoglobin (HGBA1C) 3929.9109 umol/L
[2024-05-21 10:25] LABS: B Type Natriuretic Peptide 17 pg/mL (<100)
[2024-05-21 10:27] LABS: Alanine Aminotransferase 25 U/L (0-40); Albumin Level 4.2 g/dL (3.5-5.0); Alkaline Phosphatase 67 U/L (39-117); Anion Gap 10 (12-20); Aspartate Amino Transferase 23 U/L (5-37); Bilirubin Direct 0.2 mg/dL (0.0-0.5); Bilirubin Total 0.7 mg/dL (0.0-1.0); Blood Urea Nitrogen 14 mg/dL (9-16); Calcium 9.1 mg/dL (8.4-10.2); Carbon Dioxide 28 mmol/L (22-29); Chloride 108 mmol/L (96-108); Cholesterol 130 mg/dL (<200); Estimated Glomerular Filt Rate > 60; Glucose Fasting 109 mg/dL (60-99); HDL Cholesterol 29 mg/dL (>40); LDL Cholesterol Calculated 78 mg/dL (<100); Magnesium 2.3 mg/dL (1.6-2.6); Potassium 4.6 mmol/L (3.3-5.1); Sodium 141 mmol/L (135-145); Total Protein 7.2 g/dL (6.5-8.0); Triglycerides 115 mg/dL (<150)
[2024-05-21 10:44] LABS: PSA,Total (Free>4and<10) 1.75 ng/mL (0.00-4.00); TSH reflex Free T4 0.96 uIU/mL (0.32-4.0); Vitamin D 25-OH Total 34.1 ng/mL (>30)
[2024-05-21 10:53] LABS: Folate 14.7 ng/mL (> or = 4.0); Vitamin B12 1702 pg/mL (200-900)
[2024-05-27 14:29] LABS: Anti Nuclear Antibody Screen NEGATIVE (NEGATIVE)
== END 2024-05-21 08:11 | disposition home or self-care (01) ==
LOC: HO.LAB 08:10
PROVIDERS: PCP Internal Medicine; Visit Provider Physician Assistant Medical
DX: Z00.00 Encounter for general adult medical examination without abnormal findings (principal); M25.50 Pain in unspecified joint; R60.0 Localized edema; Z12.5 Encounter for screening for malignant neoplasm of prostate; Z13.1 Encounter for screening for diabetes mellitus
CPT/HCPCS: 36415; 80053; 80061; 80076; 82248; 82306; 82550; 82607; 82746; 83036; 83735; 83880; 84153; 84443; 85025; 86038

== ENCOUNTER 2024-09-06 13:34 | Outpatient (AMB) | payer OTHER, SELFPAY ==
--- OUTSIDE RECORDS SUMMARY | 2024-09-06 13:43 | XMS_ITS | Data Portability ---
Author Organization [employer] [place] Address [address] [place] [phone] Care Team Providers Care Head Greenskeeper Name Role Phone [facility] Referring Provider Assessment No assessment recorded. Plan of Treatment Reminders Order Date Submit Date Provider Last Modified By Organization Details Last Modified Time Details Appointments None recorded. Lab None recorded. Referral None recorded. Procedures None recorded. Surgeries None recorded. Imaging None recorded. Medication Orders prednisone 20 mg tablet 2021 022 [facility]/Pharmacy #[id number], [address] [facility], [place], [address], 17:40:50 Patient TargetsNo targets recorded. Patient InstructionsNo [...] Ismael Lowry MD [address] [facility] [address] [place] [address] 05/31/2021 17:33:17 10/28/2021 12:50:05 Asthma [id number] J45.909 Health Concerns Section Related Observation LastModified by Organization Janey holder LastModified Time None Recorded Concern Status LastModified by Organization Details LastModified Time None Recorded Advance Directives Directive None Recorded Payers Insurance Date Sequence Insurance Name Policy Number Policy Taylor Covered Member ID Taylor Member ID Guarantor Name 06/07/2023 1 [facility] - DOS PRIOR TO 2022 - DUAL ELIGIBLE (MEDICARE REPLACEMENT/ADV ANTAGE - HMO) Robert Rodriguez [place] [address] Robert Rodriguez [place] 06/07/2023 1 [facility] - DOS ON OR AFTER 2022 - DUAL ELIGIBLE - USP OPTIONS AND ONE CARE (MEDICARE REPLACEMENT/ADV ANTAGE - HMO) Robert [place] [id number] Robert Rodriguez [place] Notes Date Note Type Note Provider Name [...] was documented as being ordered by prior [facility] Dr. Larios to patient's pharmacy. Ismael Lowry MD [address] [place] [address],[address], [place], [address], [facility] - JANETT PELAEZ 05/31/2021 17:42:47
--- NOTE | 2024-09-06 13:47 | A.OFFVIS_ITS ---
Vital Signs 09/06/24 13:48 Height 5 ft 6 in Weight 174 lb BMI 28.1 BP 122/74 Blood Pressure Location Lt brachial Position Sitting Pulse 74 Pulse Source Pulse Oximeter Pulse Oximetry (%) 95 Oxygen Delivery Method Room Air Intake Visit Reasons: COPD Intake Note: pt is here for follow up and states he is stable right now,no complaints Inside Wirer Required: No Allergies haloperidol [From HALDOL] Adverse Reaction (Severe, Verified 09/06/24 14:05) AKATHESIA cimetidine [From Tagamet] Adverse Reaction (Intermediate, Verified 09/06/24 14:05) GYNECOMASTIA bupropion [BUPROPION] Adverse Reaction (Unknown, Verified 09/06/24 14:05) UNKNOWN Medication List - Last Reconciled 09/06/24 by Ivan Rey MD acetaminophen (Tylenol Extra Strength) 1,000 mg PO Q6H PRN albuterol sulfate 90 mcg/actuation (Ventolin HFA) 2 puffs inhalation Q4-6H PRN albuterol sulfate 2.5 mg (3 mL) PO Q4-6H PRN arm brace (Wrist Brace) As directed. Please provide two due to bilateral carpal tunnel syndrome atorvastatin 10 mg PO BEDTIME blood pressure monitor As directed cholecalciferol (vitamin D3) 25 mcg PO DAILY cyclobenzaprine 10 mg PO TID PRN dupilumab (Dupixent) 300 mg (2 mL) subcut Q2W famotidine 40 mg PO DAILY fluticasone propion-salmeterol 500-50 mcg/dose (Wixela Inhub) 1 ea PO DAILY Incruse Ellipta 62.5 mcg/actuation (umeclidinium) 1 inh PO DAILY NS losartan 100 mg PO DAILY magnesium oxide 500 mg PO DAILY mecobalamin (vitamin B12) 1,000 mcg PO .weekly melatonin 5 mg PO BEDTIME PRN meloxicam 15 mg PO DAILY miscellaneous medical supply 1 ea miscellaneous DAILY miscellaneous medical supply 1 ea miscellaneous DAILY montelukast 10 mg PO BEDTIME PRN prednisone 5 mg PO Q OTHER DAY Ventolin HFA 90 mcg/actuation (albuterol sulfate) 2 puffs PO Q4H PRN NS Do you need a note to return to daycare/school/sports/work: No HPI HPI COPD: Details: 74 YEARS OLD VERY PLEASANT GENTLEMAN IS HERE FOR HIS ROUTINE FOLLOW-UP AFTER 3 MONTHS. HE IS A CASE OF CHRONIC SEVERE ALLERGIC RHINITIS/BRONCHIAL ASTHMA. SINCE HE IS ON DUPIXENT INJECTIONS, HE HAS IMPROVED SIGNIFICANTLY. TODAY HE IS TELLING ME THAT HE IS ALMOST LIKE A NEW PERSON. HAS VERY LITTLE RESIDUAL NASAL CONGESTION AND COUGH. HE CAN WALK AROUND WITHOUT ANY ISSUE. HE IS NOT HAVING ANY UNTOWARD EFFECTS FROM THE DUPIXENT INJECTIONS. HIS ANXIETY LEVEL IS ALSO AT A MINIMAL LEVEL. [facility] Medical History Carpal tunnel syndrome Asthma-COPD overlap syndrome COPD exacerbation Anxiety and depression Acute costochondritis Vitamin deficiency Vitamin deficiency Screening for prostate cancer Screening for hypercholesterolemia Acute adjustment disorder with mixed anxiety and depressed mood Reactive airways dysfunction syndrome Allergic rhinitis COPD (chronic obstructive pulmonary disease) Unspecified asthma, uncomplicated Essential hypertension Surgical History History of colonoscopy History of surgery on arm History of hernia surgery Social History Housing: Other Housing Other:: Trailer Home Alcohol intake: never Patient Tobacco Use Status: Never used Tobacco e-Cigarette/Vaping Use: Never Used Second Hand Smoke Exposure: No service: No Current occupational status: retired and disabled Cognitive needs: No Hearing needs: No Vision needs: Yes (Glasses) Review of Systems Const All systems reviewed & are unremarkable except as noted in HPI and below Eyes Reports no additional complaints ENT Reports nasal congestion (daily ) and Reports nasal discharge (intermittent) Card Denies chest pain, Denies irregular heart rhythm and Denies leg edema Resp Reports as per HPI (He has much more pronounced due shortness of breath and nasal congestion ) GI Reports no additional complaints Reports no additional complaints Musc Reports no additional complaints Skin/Breast Reports system reviewed and no additional complaints, except as documented Neuro Reports no additional complaints Psych Reports anxiety Physical Exam Vital Signs: Last Vital Signs Pulse 74 09/06/24 13:48 BP 122/74 09/06/24 13:48 Pulse Ox 95 09/06/24 13:48 Oxygen Delivery Method Room Air 09/06/24 13:48 BMI result Body Mass Index 28.1 Const General: comfortable, no acute distress, alert, awake and anxious Orientation/consciousness: patient oriented x3 HEENT Head: Yes normal to inspection General nose exam: No nasal polyps present, No nasal discharge present and Other nasal findings present (Mild bilateral nasal congestion) Face and sinus: Yes sinuses nontender Mouth: oropharynx normal Throat: Yes posterior oropharynx normal Eyes General: appearance normal, both eyes and all related structures Neck Neck: Yes normal visual inspection, Yes no lymphadenopathy, Yes trachea midline and Yes no JVD Thyroid: Thyroid normal Chest Chest palpation & inspection: normal inspection of the chest, normal palpation of entire chest wall and no tenderness Resp Other: PERCUSSION NOTE RESONANT, BREATH SOUNDS ARE EQUAL ON BOTH SIDES WITH PROLONGED EXPIRATORY PHASE. Lungs are very clear. No wheezes or rhonchi are heard. Cardio Palpation: normal PMI Rate: regular rate Rhythm: regular rhythm Heart sounds: no gallops and no murmurs GI Palpation (GI): Soft to palpation, nontender, No hepatosplenomegaly present and no masses Auscultation: normal bowel sounds Back/Spine/Pelvis Thoracic/Lumbar Spine: thoracic and lumbar spine normal to inspection Skin General skin exam: no rashes or lesions noted Neuro General: patient oriented x3 and no focal motor deficits Cranial nerves: Yes CN's II-XII intact bilaterally Extrem General: Yes normal to inspection, Yes no clubbing, cyanosis or edema and Yes no calf tenderness Psych Speech and movement: Normal speech and movement present Affect: Anxious affect present Assessment & Plan Assessment & Plan (1) Reactive airways dysfunction syndrome: Comment: HE HAS CHRONIC REACTIVE AIRWAYS SYNDROME. TX: SEE UNDER ASTHMA/COPD MANAGEMENT. Code(s): J68.3 - Other acute and subacute respiratory conditions due to chemicals, gases, fumes and vapors Category: Medical Plan: SEE UNDER ACOS (2) Asthma-COPD overlap syndrome: Comment: PATIENT HAS HAD CHRONIC SEVERE PERSISTENT ASTHMA/COPD. WITH FREQUENT EXACERBATION, AND STEROID DEPENDENCE. NOW THAT HE HAS BEEN ON DUPIXENT THERAPY, HE IS DOING MUCH BETTER . CURRENTLY HIS SYMPTOMS ARE VERY MINIMAL AND HE IS VERY HAPPY WITH HIS CONDITION. HE STILL NEEDS LOT OF SUPPORT, AND CONTINUED INTENSIVE TREATMENT. Code(s): J44.9 - Chronic obstructive pulmonary disease, unspecified Category: Medical Plan: CONTINUE DUPIXENT INJECTION 300 MG Q.2 WEEKS INCRUSE ELLIPTA 1 INHALATION DAILY WIXELA 500-51 INHALATION B.I.D. ALBUTEROL HFA 2 PUFFS Q 6 HOURS P.R.N./ OR ALBUTEROL SOLUTION IN THE NEBULIZER Q 4-6 HOURS P.R.N.. (3) Anxiety and depression: Comment: This is chronic problem, Currently he does not use any anxiolytic meds. since his respiratory symptoms are under better control his anxiety level has been much less. The patient claims that he is doing well and he does not need to see any psychologist, also does not need anxiolytic agents at this time. Code(s): F41.9 - Anxiety disorder, unspecified; F32.A - Depression, unspecified Category: Medical Plan: ABOVE (4) Allergic rhinitis: Comment: HAS HAD CHRONIC ALLERGIC RHINITIS WITH POSTNASAL DISCHARGE AND CONTRIBUTING TO HIS COUGH WELL REACTIVE AIRWAYS. IT IS CONTROLLED WELL EXPECTED . Code(s): J30.9 - Allergic rhinitis, unspecified Category: Medical Plan: DUPIXENT INJECTION 300 MG SUBQ Q.2 WEEKS MONTELUKAST 10 MG DAILY. Coding Level of Care Code Est Pt Level 4 (44318) Diagnoses Reactive airways dysfunction syndrome J68.3 Asthma-COPD overlap syndrome J44.9 Anxiety and depression F41.9; F32.A Allergic rhinitis J30.9
[2024-09-06 13:48] VITALS: BP 122/74; PULSE 74; O2SAT 95; BMI 28.1
== END 2024-09-06 14:06 | disposition home or self-care (01) ==
LOC: HO.HPS 13:35
PROVIDERS: PCP Internal Medicine; Visit Provider Internal Medicine
DX: J68.3 Other acute and subacute respiratory conditions due to chemicals, gases, fumes and vapors (principal); J44.9 Chronic obstructive pulmonary disease, unspecified; F41.9 Anxiety disorder, unspecified; F32.A Depression, unspecified; J30.9 Allergic rhinitis, unspecified
CPT/HCPCS: 99214

== ENCOUNTER → 2024-09-06 13:34 | Outpatient (BNVA) | payer OTHER, SELFPAY | PROVIDERS: PCP Internal Medicine; Visit Provider Internal Medicine | DX: J44.9 Chronic obstructive pulmonary disease, unspecified (principal); J68.3 Other acute and subacute respiratory conditions due to chemicals, gases, fumes and vapors; J30.9 Allergic rhinitis, unspecified; F41.9 Anxiety disorder, unspecified; F32.A Depression, unspecified | CPT/HCPCS: 99212 ==

== ENCOUNTER 2024-12-07 14:46 | Outpatient (AMB) | payer OTHER, SELFPAY ==
--- NOTE | 2024-12-07 15:10 | A.OFFPC_ITS ---
Vital Signs 12/07/24 15:11 Height 5 ft 6 in Weight 173 lb 2 oz BMI 27.9 BP 130/78 Blood Pressure Location Lt brachial Position Sitting Pulse 85 Pulse Source Pulse Oximeter Temp 97.5 F Temp Source Temporal Artery Scan Pulse Oximetry (%) 92 Oxygen Delivery Method Room Air Intake Visit Reasons: Annual Exam - see comments Intake Note: Patient is here today for a physical. Plastic Surgery Nurse Required: No Medical Administrator: Present Accompanied by: Spouse Allergies haloperidol (From HALDOL) Adverse Reaction (Severe, Verified 12/10/24 11:36) AKATHESIA cimetidine (From Tagamet) Adverse Reaction (Intermediate, Verified 12/10/24 11:36) GYNECOMASTIA bupropion (BUPROPION) Adverse Reaction (Unknown, Verified 12/10/24 11:36) UNKNOWN Medication List - Last Reconciled 12/10/24 by Eris Grajeda MD acetaminophen (Tylenol Extra Strength) 1,000 mg PO Q6H PRN albuterol sulfate 90 mcg/actuation (Ventolin HFA) 2 puffs inhalation Q4-6H PRN albuterol sulfate 2.5 mg (3 mL) PO Q4-6H PRN arm brace (Wrist Brace) As directed. Please provide two due to bilateral carpal tunnel syndrome atorvastatin 10 mg PO BEDTIME blood pressure monitor As directed cholecalciferol (vitamin D3) 25 mcg PO DAILY cyclobenzaprine 10 mg PO TID PRN dupilumab (Dupixent) 300 mg (2 mL) subcut Q2W famotidine 40 mg PO DAILY fluticasone propion-salmeterol 500-50 mcg/dose (Wixela Inhub) 1 ea PO DAILY Incruse Ellipta 62.5 mcg/actuation (umeclidinium) 1 inh PO DAILY NS losartan 100 mg PO DAILY magnesium oxide 500 mg PO DAILY mecobalamin (vitamin B12) 1,000 mcg PO .weekly melatonin 5 mg PO BEDTIME PRN meloxicam 15 mg PO DAILY miscellaneous medical supply 1 ea miscellaneous DAILY miscellaneous medical supply 1 ea miscellaneous DAILY montelukast 10 mg PO BEDTIME PRN prednisone 5 mg PO Q OTHER DAY Ventolin HFA 90 mcg/actuation (albuterol sulfate) 2 puffs PO Q4H PRN NS Tobacco use date assessed: 12/07/24 Fall risk assessment: No Falls in past year Last assessed Fall Risk: 12/07/24 Dental Screening Dental Screen Date: 12/07/24 Did you have a dental visit in the last 12 months?: Yes Did you have a dental problem in the last 6 months where you did not have access to dental care?: No Was dental information given to patient?: Patient has dentist HPI Annual Exam - see comments HPI Details 74-year-old male presents to the office requesting an annual physical. [facility] Medical History Carpal tunnel syndrome Asthma-COPD overlap syndrome COPD exacerbation Anxiety and depression Acute costochondritis Vitamin deficiency Vitamin deficiency Screening for prostate cancer Screening for hypercholesterolemia Acute adjustment disorder with mixed anxiety and depressed mood Reactive airways dysfunction syndrome Allergic rhinitis COPD (chronic obstructive pulmonary disease) Unspecified asthma, uncomplicated Essential hypertension Surgical History History of colonoscopy History of surgery on arm History of hernia surgery Social History Housing: Other Housing Other:: Trailer Home Alcohol intake: never Patient Tobacco Use Status: Never used Tobacco e-Cigarette/Vaping Use: Never Used Second Hand Smoke Exposure: No service: No Current occupational status: retired and disabled Cognitive needs: No Hearing needs: No Vision needs: Yes (Glasses) Questionnaire PHQ-9 Over the last 2 weeks, how often have you been bothered by any of the following problems? 1. Little interest or pleasure in doing things: not at all 2. Feeling down, depressed, or hopeless: not at all 3. Trouble falling or staying asleep, or sleeping too much: not at all 4. Feeling tired or having little energy: not at all 5. Poor appetite or overeating: several days 6. Feeling bad about yourself - or that you are a failure or have let yourself or your family down: not at all 7. Trouble concentrating on things, such as reading the newspaper or watching television: not at all 8. Moving or speaking so slowly that other people could have noticed. Or the opposite - being so fidgety or restless that you have been moving around a lot more than usual: not at all 9. Thoughts that you would be better off or of hurting yourself in some way: not at all Total score: 1 Depression Screening Interpretation: Positive Depression Screening Done: Yes Source: Developed by Drs. Raphael Basurto, Nereida Andrea, Shekhar Flowers and colleagues, with an educational jon from [employer]. Thrive Questionnaire Date Thrive assessed: 05/20/24 I am a: Patient What is your living situation today?: I have a steady place to live Within the past 12 months, did the food you bought not last and you didn't have the money to get more?: Never true Within the past 12 months, did you worry whether your food would run out before you got money to buy more?: Never true Do you have trouble paying for medicines?: No Do you have trouble getting transportation to medical appointments?: No Do you have trouble paying your heating and electricity bill?: No Do you have trouble taking care of your child, family member or friend?: No Do you have trouble with day-to-day activities such as bathing, preparing meals, shopping, managing finances, etc.?: No Are you currently unemployed and looking for a job?: Yes Are you interested in more education?: No Please select the resources that you would like help with: None Currently or been in a relationship where the following occur: No concerns reported THRIVE Score: 0 AUDIT C Alcohol Use Questionnaire (AUDIT-C) 1. How often do you have a drink containing alcohol?: Never Total Score: 0 ANNABELLA-7 AMB Questionnaire ANNABELLA-7 Date ANNABELLA - 7 assessed: 05/20/24 Feeling nervous, anxious, or on edge: 0 = Not at all Not being able to stop or control worryin = Not at all Worrying too much about different things: 0 = Not at all Trouble relaxin = Not at all Being so restless that it is hard to sit still: 0 = Not at all Becoming easily annoyed or irritable: 0 = Not at all Feeling afraid as if something awful might happen: 0 = Not at all Total ANNABELLA-7 score (0-4 normal; 5-9 mild; 10-14 moderate; 15-21 severe): 0 Source: Developed by Drs. Raphael Basurto, Shekhar Arzola Kroenke and colleagues, with an educational jon from [employer]. Physical exam (Primary Care) Vital Signs: Last Vital Signs Temp 97.5 F 12/07/24 15:11 Pulse 85 12/07/24 15:11 BP 130/78 12/07/24 15:11 Pulse Ox 92 12/07/24 15:11 Oxygen Delivery Method Room Air 12/07/24 15:11 BMI result Body Mass Index 27.9 Tobacco/Smoking Status: Tobacco use Status Tobacco use date assessed 12/07/24 12/07/24 15:15 Patient Tobacco Use Status Never used Tobacco 12/07/24 15:15 e-Cigarette/Vaping Use Never Used 12/07/24 15:15 PHQ-9: PHQ-9 Score PHQ-9: Total score 1 12/07/24 15:15 Depression Screening Interpretation: Positive Thrive Assessment: Date of Thrive Assessment Date Thrive assessed 05/20/24 12/07/24 15:15 Currently or been in a relationship where the following occur: No concerns reported Const General: cooperative and healthy appearing Nutritional Appearance: well nourished Orientation/consciousness: patient oriented x3 Limitations: no limitations HENMT Head: Yes normal to inspection Eyes General: appearance normal, both eyes and all related structures Neck Neck: Yes normal visual inspection Chest Chest palpation & inspection: normal palpation of entire chest wall Resp Effort & Inspection: normal respiratory effort Neuro General: patient oriented x3 Coding Level of Care Code Est Pt Prev Care >65y(95763) Diagnoses Essential hypertension I10 Reactive airways dysfunction syndrome J68.3 Annual physical exam Z00.00 Assessment & Plan Assessment & Plan (1) Essential hypertension: Code(s): I10 - Essential (primary) hypertension Category: Medical Plan: Blood work is in range. (2) Reactive airways dysfunction syndrome: Comment: HE HAS CHRONIC REACTIVE AIRWAYS SYNDROME. TX: SEE UNDER ASTHMA/COPD MANAGEMENT. Code(s): J68.3 - Other acute and subacute respiratory conditions due to chemicals, gases, fumes and vapors Category: Medical Plan: Condition is stable. (3) Annual physical exam: Code(s): Z00.00 - Encounter for general adult medical examination without abnormal findings Plan: As above.
[2024-12-07 15:11] VITALS: BP 130/78; PULSE 85; TEMP 36.4; O2SAT 92; BMI 27.9
== END 2024-12-07 15:41 | disposition home or self-care (01) ==
LOC: HO.HMCH 14:47
PROVIDERS: PCP Internal Medicine; Visit Provider Internal Medicine
DX: I10 Essential (primary) hypertension (principal); J68.3 Other acute and subacute respiratory conditions due to chemicals, gases, fumes and vapors; Z00.00 Encounter for general adult medical examination without abnormal findings

== ENCOUNTER → 2024-12-07 14:46 | Outpatient (BNVA) | payer OTHER, SELFPAY | PROVIDERS: PCP Internal Medicine; Visit Provider Internal Medicine | DX: Z00.00 Encounter for general adult medical examination without abnormal findings (principal); I10 Essential (primary) hypertension; J68.3 Other acute and subacute respiratory conditions due to chemicals, gases, fumes and vapors | CPT/HCPCS: 96127; 99397 ==

== ENCOUNTER 2025-01-02 13:31 | Outpatient (AMB) | payer OTHER, SELFPAY ==
[2025-01-02 13:42] VITALS: BP 130/64; PULSE 71; O2SAT 95; BMI 27.8
--- NOTE | 2025-01-02 13:42 | A.OFFVIS_ITS ---
Vital Signs 01/02/25 13:42 Height 5 ft 6 in Weight 171 lb 15.369 oz BMI 27.8 BP 130/64 Blood Pressure Location Lt brachial Position Sitting Pulse 71 Pulse Source Pulse Oximeter Pulse Oximetry (%) 95 Oxygen Delivery Method Room Air Intake Visit Reasons: copd Intake Note: pt is here for follow up and states he is okay, pt needs a refill ventolin for pt Emergency Room Registered Nurse Required: No Allergies haloperidol (From HALDOL) Adverse Reaction (Severe, Verified 01/02/25 13:54) AKATHESIA cimetidine (From Tagamet) Adverse Reaction (Intermediate, Verified 01/02/25 13:54) GYNECOMASTIA bupropion (BUPROPION) Adverse Reaction (Unknown, Verified 01/02/25 13:54) UNKNOWN Medication List - Last Reconciled 01/02/25 by Ivan Rey MD acetaminophen (Tylenol Extra Strength) 1,000 mg PO Q6H PRN albuterol sulfate 90 mcg/actuation (Ventolin HFA) 2 puffs inhalation Q4-6H PRN albuterol sulfate 2.5 mg (3 mL) PO Q4-6H PRN arm brace (Wrist Brace) As directed. Please provide two due to bilateral carpal tunnel syndrome atorvastatin 10 mg PO BEDTIME blood pressure monitor As directed cholecalciferol (vitamin D3) 25 mcg PO DAILY cyclobenzaprine 10 mg PO TID PRN dupilumab (Dupixent) 300 mg (2 mL) subcut Q2W famotidine 40 mg PO DAILY Incruse Ellipta 62.5 mcg/actuation (umeclidinium) 1 inh PO DAILY NS losartan 100 mg PO DAILY magnesium oxide 500 mg PO DAILY mecobalamin (vitamin B12) 1,000 mcg PO .weekly melatonin 5 mg PO BEDTIME PRN meloxicam 15 mg PO DAILY miscellaneous medical supply 1 ea miscellaneous DAILY miscellaneous medical supply 1 ea miscellaneous DAILY montelukast 10 mg PO BEDTIME PRN prednisone 5 mg PO Q OTHER DAY Ventolin HFA 90 mcg/actuation (albuterol sulfate) 2 puffs PO Q4H PRN NS Do you need a note to return to daycare/school/sports/work: No HPI HPI copd: Details: Robert is 74 years old gentleman with longstanding history of allergic rhinitis, asthma/COPD. Since he has been on biologic treatment with Dupixent, his symptoms are down to minimal, He is not anxious anymore and breathing has been very good. He told me that he does not use fluticasone-salmeterol anymore. He still uses Incruse Ellipta once a day and Ventolin 2 puffs Q 6 hours p.r.n. Denies any cough, postnasal discharge, wheezing attacks or shortness of breath on exertion. [facility] Medical History Carpal tunnel syndrome Asthma-COPD overlap syndrome COPD exacerbation Anxiety and depression Acute costochondritis Vitamin deficiency Vitamin deficiency Screening for prostate cancer Screening for hypercholesterolemia Acute adjustment disorder with mixed anxiety and depressed mood Reactive airways dysfunction syndrome Allergic rhinitis COPD (chronic obstructive pulmonary disease) Unspecified asthma, uncomplicated Essential hypertension Surgical History History of colonoscopy History of surgery on arm History of hernia surgery Social History Housing: Other Housing Other:: Trailer Home Alcohol intake: never Patient Tobacco Use Status: Never used Tobacco e-Cigarette/Vaping Use: Never Used Second Hand Smoke Exposure: No service: No Current occupational status: retired and disabled Cognitive needs: No Hearing needs: No Vision needs: Yes (Glasses) Review of Systems Const All systems reviewed & are unremarkable except as noted in HPI and below Eyes Reports no additional complaints ENT Reports nasal congestion (daily ) and Reports nasal discharge (intermittent) Card Denies chest pain, Denies irregular heart rhythm and Denies leg edema Resp Reports as per HPI (He has much more pronounced due shortness of breath and nasal congestion ) GI Reports no additional complaints Reports no additional complaints Musc Reports no additional complaints Skin/Breast Reports system reviewed and no additional complaints, except as documented Neuro Reports no additional complaints Psych Reports anxiety Physical Exam Vital Signs: Last Vital Signs Pulse 71 01/02/25 13:42 BP 130/64 01/02/25 13:42 Pulse Ox 95 01/02/25 13:42 Oxygen Delivery Method Room Air 01/02/25 13:42 BMI result Body Mass Index 27.8 Const General: comfortable, no acute distress, alert, awake and anxious Orientation/consciousness: patient oriented x3 HEENT Head: Yes normal to inspection General nose exam: No nasal polyps present, No nasal discharge present and Other nasal findings present (Mild bilateral nasal congestion) Face and sinus: Yes sinuses nontender Mouth: oropharynx normal Throat: Yes posterior oropharynx normal Eyes General: appearance normal, both eyes and all related structures Neck Neck: Yes normal visual inspection, Yes no lymphadenopathy, Yes trachea midline and Yes no JVD Thyroid: Thyroid normal Chest Chest palpation & inspection: normal inspection of the chest, normal palpation of entire chest wall and no tenderness Resp Other: PERCUSSION NOTE RESONANT, BREATH SOUNDS ARE EQUAL ON BOTH SIDES WITH PROLONGED EXPIRATORY PHASE. Lungs are very clear. No wheezes or rhonchi are heard. Cardio Palpation: normal PMI Rate: regular rate Rhythm: regular rhythm Heart sounds: no gallops and no murmurs GI Palpation (GI): Soft to palpation, nontender, No hepatosplenomegaly present and no masses Auscultation: normal bowel sounds Back/Spine/Pelvis Thoracic/Lumbar Spine: thoracic and lumbar spine normal to inspection Skin General skin exam: no rashes or lesions noted Neuro General: patient oriented x3 and no focal motor deficits Cranial nerves: Yes CN's II-XII intact bilaterally Extrem General: Yes normal to inspection, Yes no clubbing, cyanosis or edema and Yes no calf tenderness Psych Speech and movement: Normal speech and movement present Affect: Anxious affect present Assessment & Plan Assessment & Plan (1) Asthma-COPD overlap syndrome: Comment: PATIENT HAS HAD CHRONIC SEVERE PERSISTENT ASTHMA/COPD. WITH FREQUENT EXACERBATION, AND STEROID DEPENDENCE. NOW THAT HE HAS BEEN ON DUPIXENT THERAPY, HE IS DOING MUCH BETTER . CURRENTLY HIS SYMPTOMS ARE VERY MINIMAL AND HE IS VERY HAPPY WITH HIS CONDITION. HE STILL NEEDS LOT OF SUPPORT, AND CONTINUED INTENSIVE TREATMENT. Code(s): J44.9 - Chronic obstructive pulmonary disease, unspecified Category: Medical Plan: Continue Dupixent 300 mg subQ q.2 weeks Incruse Ellipta 1 inhalation daily Albuterol ( Ventolin) HFA 2 puffs Q 4-6 hours p.r.n. Prednisone 5 mg Q alternate days (2) Reactive airways dysfunction syndrome: Comment: HE HAS CHRONIC REACTIVE AIRWAYS SYNDROME. IT HAS BEEN PART OF ASTHMA/COPD SYNDROME Code(s): J68.3 - Other acute and subacute respiratory conditions due to chemicals, gases, fumes and vapors Category: Medical Plan: As under asthma/COPD (3) Allergic rhinitis: Comment: HAS HAD CHRONIC ALLERGIC RHINITIS WITH POSTNASAL DISCHARGE AND CONTRIBUTING TO HIS COUGH WELL REACTIVE AIRWAYS. IT IS CONTROLLED WELL EXPECTED . Code(s): J30.9 - Allergic rhinitis, unspecified Category: Medical Plan: Continue Dupixent subQ Q.2 weeks Continue montelukast 10 mg daily Coding Level of Care Code Est Pt Level 3 (12549) Diagnoses Asthma-COPD overlap syndrome J44.9 Reactive airways dysfunction syndrome J68.3 Allergic rhinitis J30.9
== END 2025-01-02 13:57 | disposition home or self-care (01) ==
LOC: HO.HPS 13:32
PROVIDERS: PCP Internal Medicine; Visit Provider Internal Medicine
DX: J44.9 Chronic obstructive pulmonary disease, unspecified (principal); J68.3 Other acute and subacute respiratory conditions due to chemicals, gases, fumes and vapors; J30.9 Allergic rhinitis, unspecified
CPT/HCPCS: 99213

== ENCOUNTER → 2025-01-02 13:31 | Outpatient (BNVA) | payer OTHER, SELFPAY | PROVIDERS: PCP Internal Medicine; Visit Provider Internal Medicine | DX: J44.9 Chronic obstructive pulmonary disease, unspecified (principal); J68.3 Other acute and subacute respiratory conditions due to chemicals, gases, fumes and vapors; J30.9 Allergic rhinitis, unspecified | CPT/HCPCS: 99212 ==